=== PATIENT | male | born 1970 | race Caucasian/White ===

== ENCOUNTER 2025-08-04 06:05 | Inpatient (IN) ==
--- NOTE | 2025-08-04 06:22 | Emergency Department Note ---
Impression & Plan Abdominal pain, Rhinovirus infection, Small bowel obstruction ED Provider Note NAME: VALENTE SALOMON AGE: 54 SEX: M : 1970 ARRIVES VIA: Walk-In INFORMANT: Patient ED PROVIDER(S): Peter Grimes MD CHIEF COMPLAINT: Abdominal pain, nausea. PLAN: Disposition: Admit MEDICAL DECISION MAKING: The patient is a pleasant 54-year-old gentleman with a past medical history of IBS, history of GERD, history of Angela fundoplication remotely, hyperlipidemia, hypertension, atrial flutter on Eliquis who presents to the emergency department via walk-in for evaluation of abdominal pain, bloating with nausea over the past 2 days where reports moving his bowels this morning and yesterday but only a small soft amount. He reported a normal bowel movement without straining 2 days ago. He reports having sore throat with some mild congestion that began yesterday as well. Patient also describes history of lysis of adhesions remotely in the early as well as subsequent lysis of adhesions when he had his gallbladder removed in 2007. Patient denies having recent colonoscopy. On evaluation the patient is no acute distress, afebrile with heart in the 90s and vital signs otherwise stable. Appears clinically dry. Abdomen is distended with generalized discomfort without discrete tenderness. There is no guarding or rebound. EKG demonstrates atrial flutter with variable AV block without overt acute ischemia. WBC, H/H and platelets with normal limits. Chemistry without metabolic acidosis. LFTs mildly elevated but similar to prior and nonspecific. Lipase is normal. UA without evidence of infection. Respiratory BioFire was positive for enterovirus/rhinovirus. CT of the abdomen pelvis was completed and demonstrates moderately dilated multiple fluid-filled bowel loops involving the distal ileal loops measure up to 46 mm with a maximum diameter down to the level of the distal ileum. No definite obstructing masses are seen. Per my review there is some air and stool within the colon though decompressed. Given patient reports having small soft stools earlier today unclear if findings reflect partial obstruction versus enteritis. Upon evaluation patient was feeling improved following IV fluid hydration, IV APAP, IV famotidine, IV Zofran and IV morphine. Patient still with abdominal distention and some discomfort. CT findings were reviewed with the patient and agrees with plan for admission for further management. Case was discussed with Dr. Irving, general surgery on-call. Appreciate consultation and recommendations. Agrees with admission to medicine service for observation. Agrees with NG tube if patient were to become more symptomatic again and can defer if not having significant pain or nausea and vomiting. Case was discussed with Dr. Gaines, [facility] hospitalist, who will evaluate the patient for admission. Triage Nursing notes reviewed and agree them. Prior/external medical records reviewed Vital Signs: reviewed Differential diagnosis: Gastroenteritis, food borne illness, infections, appendicitis, diverticulitis, inflammatory bowel disease, obstruction, GI bleed, biliary pathology, volvulus, as well as other pathologies. ER treatment provided: See below. Diagnostics interpreted by me: ECG: Atrial flutter, variable AV block, 94 bpm, no overt ST elevation or depression, QTc 502, QRS 88. Cardiac Monitoring: An order for continuous cardiac monitoring was placed and demonstrated Atrial flutter, variable AV block, 94 bpm, Laboratory studies: See below Imaging studies: See below Consultation(s): Dr. Irving, general surgery Dr. Gaines, [facility] hospitalist, HPI: Per MDM. ROS: See above HPI for pertinent positives & negatives. A total of 10 systems reviewed and were otherwise negative. VITALS:See Below PHYSICAL EXAMINATION: GENERAL: Awake, alert, in no distress HENT: Normocephalic, atraumatic. Oropharynx with dry mucous membranes and otherwise unremarkable. EYES: Normal conjunctiva. Sclera non-icteric. NECK: Supple. No nuchal rigidity. FROM. No JVD. RESPIRATORY: Clear to auscultation. CARDIAC: Regular rate, normal rhythm. Extremities warm and well perfused. Pulses equal. ABDOMEN: Distended with generalized discomfort without discrete tenderness. There is no guarding or rebound. MUSCULOSKELETAL: Chest examination reveals no tenderness. The back is symmetrical on inspection without obvious abnormality. There is no CVA tenderness to palpation. No joint edema. LOWER EXTREMITIES: Calves are equal size bilaterally and non-tender. No edema. No discoloration. NEURO: Normal sensorium. No sensory or motor deficits noted. SKIN: No rash or jaundice noted. Peter Grimes MD Past Med/Surg History Problem List (Updated 08/04/25 @ 22:35 by Peter Grimes MD) Rhinovirus infection (Acute) Abdominal pain (Acute) Small bowel obstruction (Acute) COVID-19 (Acute) 2022 IBS (irritable bowel syndrome) Gastritis (Acute) Diarrhea (Acute) High triglycerides (Chronic) Medical History High triglycerides Hx of gastritis History of COVID-19 fall 2022 Atrial fibrillation 2019 IBS (irritable bowel syndrome) Surgical History History of cardioversion Status post Angela fundoplication History of cardiac radiofrequency ablation Jul 2023, January 2024 History of cholecystectomy History of appendectomy History of hernia repair History of esophagogastroduodenoscopy History of colonoscopy Family History Grandfather Prostate cancer Breast cancer Skin cancer Hypertension Silicosis Father Hypertension Social History Smoking Status: Former smoker Tobacco Type: Cigars Cigarettes Per Day: does not inhale and very rare use > advised by PAT nursing; Second Hand Exposure: No; Do You Dip or Chew Tobacco: Yes (advised npo by PAT nursing); Hx Alcohol Use: Yes Alcohol type: beer Hx Substance Use: No Preferred Language: Yakut Communication Ability: Effective Prison Guard Supervisor Required: No Beliefs That Will Affect Care: None Current Living Situation: Spouse Feels Safe at Home: Yes Assistive Devices: None Allergies Allergies Allergy/AdvReac Type Severity Reaction Status Date / Time sacubitril [From Entresto] AdvReac Headache Verified 05/08/25 07:09 valsartan [From Entresto] AdvReac Headache Verified 05/08/25 07:09 Home Meds Home Medications Medication Instructions Recorded Confirmed aspirin 81 mg tablet,delayed 81 mg PO QPM 12/22/19 08/04/25 release (Dat Low Dose Aspirin) atorvastatin 20 mg tablet (Lipitor) 20 mg PO QPM 12/22/19 08/04/25 metoprolol succinate 100 mg 75 mg PO HS 07/06/21 08/04/25 tablet,extended release 24 hr (Toprol XL) acetaminophen 500 mg tablet 500 mg PO Q6H PRN Fever 12/12/21 08/04/25 (Tylenol Extra Strength) milk thistle 175 mg tablet 175 mg PO QPM 12/12/21 08/04/25 multivitamin 1 tab PO QAM 12/12/21 08/04/25 apixaban 5 mg tablet (Eliquis) 5 mg PO BID 06/04/24 08/04/25 losartan 50 mg tablet 50 mg PO QAM 11/26/24 08/04/25 dronedarone 400 mg tablet (Multaq) 400 mg PO BID 05/01/25 08/04/25 Previous Rx's Medication Instructions Recorded ondansetron 4 mg disintegrating 4 mg PO Q8 PRN nausea and vomiting 10/20/24 tablet #9 tabs Results & Data (ED) Vital Signs Vital Signs - 24 hr 08/04/25 06:06 08/04/25 06:06 08/04/25 06:21 Temperature 36.3 C L Temperature Source Oral Pulse Rate 96 H Pulse Rate from SpO2 Sensor Respiratory Rate 18 Respiratory Effort / Characteristics Non-Labored Respiratory Depth Normal Blood Pressure 131/98 Blood Pressure Mean 109 Pulse Oximetry 98 Oxygen Delivery Method Room Air Room Air Sepsis Recent Fever Within 48 Hours No Sepsis New/Unexplained Change in Mental Status No Sepsis Action Taken by Nursing No Action Required 08/04/25 06:35 08/04/25 06:36 08/04/25 06:42 Temperature Temperature Source Pulse Rate 99 H 93 H 91 H Pulse Rate from SpO2 Sensor 95 H 89 Respiratory Rate 13 19 Respiratory Effort / Characteristics Respiratory Depth Blood Pressure Blood Pressure Mean Pulse Oximetry 96 95 Oxygen Delivery Method Sepsis Recent Fever Within 48 Hours Sepsis New/Unexplained Change in Mental Status Sepsis Action Taken by Nursing 08/04/25 07:06 08/04/25 07:30 08/04/25 08:00 Temperature Temperature Source Pulse Rate 88 113 H 109 H Pulse Rate from SpO2 Sensor 91 H 107 H 113 H Respiratory Rate 19 20 19 Respiratory Effort / Characteristics Respiratory Depth Blood Pressure Blood Pressure Mean Pulse Oximetry 95 97 96 Oxygen Delivery Method Room Air Room Air Room Air Sepsis Recent Fever Within 48 Hours Sepsis New/Unexplained Change in Mental Status Sepsis Action Taken by Nursing 08/04/25 08:36 08/04/25 09:00 08/04/25 09:48 Temperature Temperature Source Pulse Rate 89 103 H 100 H Pulse Rate from SpO2 Sensor 106 H 99 H 108 H Respiratory Rate 18 Respiratory Effort / Characteristics Respiratory Depth Blood Pressure Blood Pressure Mean Pulse Oximetry 96 96 96 Oxygen Delivery Method Room Air Room Air Room Air Sepsis Recent Fever Within 48 Hours Sepsis New/Unexplained Change in Mental Status Sepsis Action Taken by Nursing 08/04/25 10:06 08/04/25 10:29 Temperature Temperature Source Pulse Rate 89 91 H Pulse Rate from SpO2 Sensor 91 H Respiratory Rate 18 Respiratory Effort / Characteristics Respiratory Depth Blood Pressure 157/110 H Blood Pressure Mean 125 Pulse Oximetry 96 Oxygen Delivery Method Room Air Sepsis Recent Fever Within 48 Hours Sepsis New/Unexplained Change in Mental Status Sepsis Action Taken by Nursing Laboratory Data Attestation: I reviewed the patient's lab results. 08/04/25 06:16 08/04/25 06:16 Lab Results 08/04/25 08/04/25 08/04/25 Range/Units 06:16 06:20 06:33 WBC 9.13 (4.8-10.8) K/ul RBC 4.98 (4.70-6.10) M/uL Hgb 15.7 (14.0-18.0) g/dl Hct 45.9 (42.0-52.0) % MCV 92.2 (80.0-100.0) fL MCH 31.5 (25.0-34.0) pg MCHC 34.2 (32.0-36.0) g/dL RDW Std Deviation 42.9 (36.4-46.3) fL RDW Coeff of Irina 12.7 (11.5-14.5) % Plt Count 226 (130-400) K/uL MPV 9.8 (9.4-12.4) fL Immature Gran % (Auto) 0.3 % Neut % (Auto) 73.5 % Lymph % (Auto) 16.1 % Wetzel % (Auto) 9.2 % Eos % (Auto) 0.5 % Baso % (Auto) 0.4 % Neut # (Auto) 6.70 H (1.40-6.50) K/uL Lymph # (Auto) 1.47 (1.20-3.40) K/uL Wetzel # (Auto) 0.84 H (0.11-0.59) K/uL Eos # (Auto) 0.05 (0.00-0.50) K/uL Baso # (Auto) 0.04 (0.00-0.20) K/uL Immature Gran # (Auto) 0.03 (0.01-0.20) K/uL Sodium 140 (136-145) mmol/L Potassium 4.2 (3.5-5.1) mmol/L Chloride 104 (98-107) mmol/L Carbon Dioxide 25 (21-32) mmol/L Anion Gap 11 (3-11) BUN 20 (6-23) mg/dl Creatinine 1.01 (0.6-1.4) mg/dl Est Cr Clr Drug Dosing 102.1 ml/min eGFR 87.83 BUN/Creatinine Ratio 19.8 (10-20) Glucose 141 H (70-99(Fasting)) mg/dl Calcium 10.2 (8.6-10.3) mg/dl Total Bilirubin 0.7 (0.2-1.0) mg/dl Direct Bilirubin 0.1 (0-0.2) mg/dl AST 61 H (13-39) U/L ALT 88 H (7-52) U/L Alkaline Phosphatase 112 H (34-104) U/L Total Protein 7.9 (6.0-8.3) gm/dl Albumin 4.8 (3.4-5.0) gm/dl Globulin 3.1 (2.5-4.0) gm/dl Albumin/Globulin Ratio 1.5 (0.9-2) Lipase 41 (11-82) U/L Urine Color Yellow Urine Appearance Clear (Clear) Urine pH 5.5 (4.5-7.5) Ur Specific Nat[place] >= 1.030 (1.000-1.030) Urine Protein Negative (Negative) Urine Glucose (UA) Negative (Negative) Urine Ketones Negative (Negative) Urine Blood Negative (Negative) Urine Nitrite Negative (Negative) Urine Bilirubin Negative (Negative) Urine Urobilinogen Negative (Negative) Ur Leukocyte Esterase Negative (Negative) Urine Comment Adenovirus (PCR) Not Detected (NotDetected) B. pertussis DNA (PCR) Not Detected (NotDetected) B.parapertussis DNA PCR Not Detected (NotDetected) C. pneumoniae DNA (PCR) Not Detected (NotDetected) Coronavirus OC43 (PCR) Not Detected (NotDetected) Coronavirus HKU1 (PCR) Not Detected (NotDetected) Coronavirus 229E (PCR) Not Detected (NotDetected) SARS-CoV-2 (PCR) Not Detected (NotDetected) Coronavirus NL63 (PCR) Not Detected (NotDetected) Human Metapneumovir PCR Not Detected (NotDetected) Influenza Type A (PCR) Not Detected (NotDetected) Influenza Type B (PCR) Not Detected (NotDetected) M. pneumoniae (PCR) Not Detected (NotDetected) Parainfluenza 1 (PCR) Not Detected (NotDetected) Parainfluenza 2 (PCR) Not Detected (NotDetected) Parainfluenza 3 (PCR) Not Detected (NotDetected) Parainfluenza 4 (PCR) Not Detected (NotDetected) RSV (PCR) Not Detected (NotDetected) Entero/Rhino (PCR) DETECTED A (NotDetected) Administered Medications Pantoprazole Sodium (Protonix) 40 mg in 10 mls @ 5 mls/min IV BID DAISY Stop: 09/03/25 10:59 Last Admin: 08/04/25 20:22 Dose: 5 mls/min Documented By: Admin: 08/04/25 11:20 Dose: 5 mls/min Documented By: APRIL Lactated Ringer's (Lr) 1,000 mls @ 125 mls/hr IV .Q8H DAISY Stop: 08/07/25 10:59 Last Admin: 08/04/25 19:33 Dose: 125 mls/hr Documented By: Infusion: 08/04/25 19:25 Dose: Infused Documented By: Admin: 08/04/25 11:25 Dose: 125 mls/hr Documented By: APRIL Metoprolol Tartrate (Metoprolol Tartrate 1 Mg/Ml Vial) 5 mg IV Q4 DAISY Stop: 09/03/25 11:59 Last Admin: 08/04/25 19:36 Dose: 5 mg Documented By: Admin: 08/04/25 16:50 Dose: 5 mg Documented By: Admin: 08/04/25 11:20 Dose: 5 mg Documented By: APRIL Morphine Sulfate (Morphine Sulfate 4 Mg/Ml 1 Ml Carp\Vial) 2 mg IV Q2R PRN PRN Reason: Pain Stop: 08/18/25 20:57 Last Admin: 08/04/25 21:07 Dose: 2 mg Documented By: CHELSI Ondansetron HCl (Ondansetron Inj 2 Mg/Ml 2 Ml Vial) 4 mg IV Q4H PRN PRN Reason: Nausea Stop: 09/03/25 10:44 Last Admin: 08/04/25 11:20 Dose: 4 mg Documented By: APRIL Discontinued Medications Sodium Chloride (Nss) 1,000 mls @ 999 mls/hr IV .Q1H1M ONE Stop: 08/04/25 07:16 Last Infusion: 08/04/25 10:06 Dose: Infused Documented By: Admin: 08/04/25 06:29 Dose: 999 mls/hr Documented By: RHINA Acetaminophen (Ofirmev) 1,000 mg in 100 mls @ 400 mls/hr IV NOW STA Stop: 08/04/25 06:35 Last Infusion: 08/04/25 06:44 Dose: Infused Documented By: Admin: 08/04/25 06:28 Dose: 400 mls/hr Documented By: RHINA Famotidine (Pepcid 20mg Iv Push) 20 mg in 5 mls @ 2.5 mls/min IV NOW STA Stop: 08/04/25 06:22 Last Admin: 08/04/25 06:28 Dose: 2.5 mls/min Documented By: RHINA Morphine Sulfate (Morphine Sulfate 4 Mg/Ml 1 Ml Carp\Vial) 4 mg IV NOW STA Stop: 08/04/25 06:44 Last Admin: 08/04/25 06:50 Dose: 4 mg Documented By: RHINA Morphine Sulfate (Morphine Sulfate 2 Mg/Ml Carp) 2 mg IV Q2R PRN PRN Reason: Pain Stop: 08/18/25 10:44 Last Admin: 08/04/25 15:43 Dose: 2 mg Documented By: Admin: 08/04/25 11:20 Dose: 2 mg Documented By: APRIL Ondansetron HCl (Ondansetron Inj 2 Mg/Ml 2 Ml Vial) 4 mg IV NOW STA Stop: 08/04/25 06:22 Last Admin: 08/04/25 06:28 Dose: 4 mg Documented By: RHINA Imaging Data Radiologist's Impression: Abdomen/Pelvis CT 08/04/25 06:43 EXAM: CT abd pelvis IV con only CLINICAL HISTORY: Abd pain, nausea. TECHNIQUE: Contrast-enhanced CT of the abdomen and pelvis was performed using the following protocol: axial images were obtained, with reconstructed coronal and sagittal images. Intravenous contrast was administered. One of the following dose reduction techniques was utilized for this exam: automated exposure control, adjustment of the mA and/or kV according to patient size, and use of iterative reconstruction. COMPARISON: 10/20/2024 FINDINGS: Bowel: There are moderately dilated, multiple fluid-filled bowel loops involving the distal ileal loops, measuring up to 46 mm at maximum diameter, extending down to the level of the distal ileum. No definite obstructing masses are seen. Mesenteric edema and a subtle amount of free fluid are present. Collapsed colonic segments are noted. No solid bowel masses are identified. The small bowel wall demonstrates normal enhancement. The SMA and SMV demonstrate normal enhancement. No pneumoperitoneum is seen. Abdomen: Liver: The liver is normal in size, shape, and density. No focal lesions, cysts, or masses are identified. The hepatic vasculature and biliary ducts are unremarkable. Gallbladder: Surgically removed. Pancreas: The head, body, and tail of the pancreas are visualized and appear normal in size and density. No pancreatic masses or calcifications are noted. The pancreatic duct is not dilated. Spleen: The spleen is normal in size, shape, and density. No splenic lesions or masses are identified. Appendix: The appendix is not identified. Kidneys and Adrenal Glands: Both kidneys are normal in size, shape, and position. Cortical thickness is within normal limits. Bilateral cortical simple cysts are present. No renal calculi or hydronephrosis are identified. The adrenal glands are unremarkable, with no evidence of masses or hyperplasia. Pelvis: Urinary Bladder: The urinary bladder is normal in contour and wall thickness. No intraluminal lesions are identified. Prostate: The prostate is normal in size and contour. No focal lesions or masses are identified. Seminal Vesicles: The seminal vesicles are normal in size and appearance. No abnormalities are noted. Rectum and Sigmoid Colon: The wall thickness of the rectum and sigmoid colon is normal, with no evidence of mass. Peritoneal and Retroperitoneal Structures: No lymphadenopathy is noted. Bones and Soft Tissues: The pelvic bones and soft tissues are unremarkable. No fractures or abnormal masses are identified. IMPRESSION: 1. There are moderately dilated, multiple fluid-filled bowel loops involving the distal ileal loops, measuring up to 46 mm at maximum diameter, extending down to the level of the distal ileum. No definite obstructing masses are seen. New finding. 2. Associated regional mesenteric congestion and a subtle amount of free fluid are present. New finding. 3. Clinical correlation, follow-up, and further work-up are advised. Electronically signed by Elliot Wood 08-04-2025 08:52 AM Discharge Plan Visit Data Chief Complaint: Abdominal Pain Stated Complaint: ABD PAIN ED Provider: Peter Grimes Discharge Problem: Abdominal pain, Rhinovirus infection, Small bowel obstruction Patient Disposition: Admitted As Inpatient Condition: Fair Discharge Instructions Interventions: ED Discharge Assessment Last Done: 08/04/25 12:41 Discharge Problem: Abdominal pain Qualifiers: Abdominal location: generalized Qualified Code(s): R10.84 - Generalized abdominal pain
[2025-08-04] MEDS: FAMOTIDINE 20MG IV PUSH 20 MG/5 ML SYR IV STA (06:28)
[2025-08-04] MEDS: ACETAMINOPHEN 1,000 MG/100 ML VIAL IV STA (06:28)
[2025-08-04] MEDS: ONDANSETRON INJ 2 MG/ML 2 ML VIAL IV STA (06:28)
[2025-08-04] MEDS: SODIUM CHLORIDE 0.9% 1,000 ML IV ONE (06:29)
[2025-08-04 06:35] LABS: Hematocrit (blood only) 45.9 % (42.0-52.0); Hemoglobin 15.7 g/dl (14.0-18.0); Immature Granulocytes # (auto) 0.03 K/uL (0.01-0.20); Immature Granulocytes % (auto) 0.3 %; Mean Corpuscular Hemoglobin 31.5 pg (25.0-34.0); Mean Corpuscular Volume 92.2 fL (80.0-100.0); Platelet Count 226 K/uL (130-400); RDW Standard Deviation 42.9 fL (36.4-46.3); Red Blood Count 4.98 M/uL (4.70-6.10); White Blood Count 9.13 K/ul (4.8-10.8)
[2025-08-04 06:46] LABS: Appearance Urine Clear (Clear); Glucose Urine UA Negative (Negative)
[2025-08-04] MEDS: MoRPHine SULFATE 4 MG/ML 1 ML CARP\\VIAL IV STA (06:50)
[2025-08-04 06:54] LABS: Alanine Aminotransferase 88.0 U/L (7-52); Albumin Globulin Ratio 1.5 (0.9-2); Albumin Level 4.8 gm/dl (3.4-5.0); Alkaline Phosphatase 112.0 U/L (34-104); Anion Gap 11.0 (3-11); Bilirubin,Total 0.7 mg/dl (0.2-1.0); Blood Urea Nitrogen 20.0 mg/dl (6-23); Calcium 10.2 mg/dl (8.6-10.3); Carbon Dioxide 25.0 mmol/L (21-32); Chloride 104.0 mmol/L (98-107); Creatinine Clr Calc Pharmacy 102.1 ml/min; Globulin 3.1 gm/dl (2.5-4.0); Glucose 141.0 mg/dl (70-99(Fasting)); Lipase 41.0 U/L (11-82); Potassium 4.2 mmol/L (3.5-5.1); Sodium 140.0 mmol/L (136-145); Total Protein 7.9 gm/dl (6.0-8.3)
[2025-08-04 07:48] LABS: Chlamydia pneumoniae PCR Not Detected (NotDetected); Coronavirus 229E PCR Not Detected (NotDetected); Coronavirus CoV-2 (COVID19)PCR Not Detected (NotDetected); Coronavirus HKU1 PCR Not Detected (NotDetected); Coronavirus NL63 PCR Not Detected (NotDetected); Coronavirus OC43PCR Not Detected (NotDetected); Human Metapneumovirus PCR Not Detected (NotDetected); Parainfluenza Virus 1 PCR Not Detected (NotDetected); Parainfluenza Virus 2 PCR Not Detected (NotDetected); Parainfluenza Virus 3 PCR Not Detected (NotDetected); Parainfluenza Virus 4 PCR Not Detected (NotDetected); Respiratory Syncytial VirusPCR Not Detected (NotDetected); Rhinovirus/Enterovirus PCR DETECTED (NotDetected)
--- NOTE | 2025-08-04 08:52 | CT Scan Report ---
EXAM: CT abd pelvis IV con only CLINICAL HISTORY: Abd pain, nausea. TECHNIQUE: Contrast-enhanced CT of the abdomen and pelvis was performed using the following protocol: axial images were obtained, with reconstructed coronal and sagittal images. Intravenous contrast was administered. One of the following dose reduction techniques was utilized for this exam: automated exposure control, adjustment of the mA and/or kV according to patient size, and use of iterative reconstruction. COMPARISON: 10/20/2024 FINDINGS: Bowel: There are moderately dilated, multiple fluid-filled bowel loops involving the distal ileal loops, measuring up to 46 mm at maximum diameter, extending down to the level of the distal ileum. No definite obstructing masses are seen. Mesenteric edema and a subtle amount of free fluid are present. Collapsed colonic segments are noted. No solid bowel masses are identified. The small bowel wall demonstrates normal enhancement. The SMA and SMV demonstrate normal enhancement. No pneumoperitoneum is seen. Abdomen: Liver: The liver is normal in size, shape, and density. No focal lesions, cysts, or masses are identified. The hepatic vasculature and biliary ducts are unremarkable. Gallbladder: Surgically removed. Pancreas: The head, body, and tail of the pancreas are visualized and appear normal in size and density. No pancreatic masses or calcifications are noted. The pancreatic duct is not dilated. Spleen: The spleen is normal in size, shape, and density. No splenic lesions or masses are identified. Appendix: The appendix is not identified. Kidneys and Adrenal Glands: Both kidneys are normal in size, shape, and position. Cortical thickness is within normal limits. Bilateral cortical simple cysts are present. No renal calculi or hydronephrosis are identified. The adrenal glands are unremarkable, with no evidence of masses or hyperplasia. Pelvis: Urinary Bladder: The urinary bladder is normal in contour and wall thickness. No intraluminal lesions are identified. Prostate: The prostate is normal in size and contour. No focal lesions or masses are identified. Seminal Vesicles: The seminal vesicles are normal in size and appearance. No abnormalities are noted. Rectum and Sigmoid Colon: The wall thickness of the rectum and sigmoid colon is normal, with no evidence of mass. Peritoneal and Retroperitoneal Structures: No lymphadenopathy is noted. Bones and Soft Tissues: The pelvic bones and soft tissues are unremarkable. No fractures or abnormal masses are identified. IMPRESSION: 1. There are moderately dilated, multiple fluid-filled bowel loops involving the distal ileal loops, measuring up to 46 mm at maximum diameter, extending down to the level of the distal ileum. No definite obstructing masses are seen. New finding. 2. Associated regional mesenteric congestion and a subtle amount of free fluid are present. New finding. 3. Clinical correlation, follow-up, and further work-up are advised. Electronically signed by Elliot Wood 08-04-2025 08:52 AM
--- NOTE | 2025-08-04 11:07 | History & Physical Report ---
Date of Service August 04, 2025 Assessment & Plan (1) Small bowel obstruction: Plan: Assessment: 1. Abdominal pain with distention with dilated loops of ileum as discussed above with possible narrowing and possibly reflecting early small bowel obstruction/partial small bowel obstruction versus ileus. General surgery's been consulted. No emesis this time therefore no NG tube. Patient has an extensive abdominal history with a fundoplication in the past with ruptured appendix with lysis of adhesions in the past. He had a small bowel obstruction in the past requiring NG tube decompression for approximately 10 days per the patient. Will keep the patient NPO. GI prophylaxis with IV Protonix. IV fluids. We personally discussed with general surgery. As needed antiemetics and analgesics have been ordered. Again, lactic acid level has been ordered and pending at the time of this dictation. 2. Acute rhinovirus. Supportive care only. Patient is relatively asymptomatic with exception with scratchy throat and some nasal congestion. Isolate accordin gly. 3. Atrial fibrillation/atrial flutter. He has had cardioversion x 2 in the past. He is on chronic Eliquis therapy. His last dose was yesterday in the evening. Discussed with general surgery about anticoagulation at this time we will hold his Eliquis given the possible need for surgery. If there is a need to hold Eliquis for an extended period of time would recommend beginning to bridge the patient either with heparin or and/or Lovenox. Again the patient appears to be in sinus rhythm on auscultation at this time and on the monitor. SCDs for DVT prophylaxis at this point. 4. Transaminitis probably secondary to #5. Appears chronic and stable. 5. Daily alcohol consumption drinking approximately 40 beers per week. His last drink was yesterday afternoon around 2:00 he had a beer. He has never gone through alcohol withdrawal in the past. We have ordered a protocol with thiamine and folic acid replacement. If his withdrawal scale escalate significantly as needed benzodiazepines will be added as needed. 6. Hypertension. We have ordered IV Lopressor to be scheduled. Will monitor carefully add additional IV antihypertensives as needed. 7. Dyslipidemia. Statin on hold at this point given n.p.o. status. Plan: As discussed above. Please refer to orders for further planning. History of Present Illness Chief Complaint: Sinus congestion, abdominal discomfort, distention and nausea. Primary Care Provider: NO PCP This is a pleasant 54-year-old male who has a history of small bowel obstruction in the past. He says in the past had a ruptured appendix with lysis of adhesions and and then he saw fundoplication. Over the last 24 to 48 hours he has had intermittent abdominal discomfort as well as sinus congestion. In the middle of the night his symptoms got worse and presented to the ER this morning for further evaluation and treatment. In the ER the patient had laboratory studies including a CBC and a CMP which showed some mild transaminitis which appears to be somewhat chronic with AST and ALT of 61 and 88 respectively with an alk phos of 112. Otherwise his labs are unremarkable including his urinalysis however they did do a respiratory viral panel which was positive for rhinovirus. We are going to check a lactic acid level for completeness. That is pending at the time of this report. CT of the abdomen pelvis shows moderately dilated multiple fluid-filled loops of small bowel of the distal ileum specifically stented to 46 mm down to the level of the distal ileum. There was some mesenteric congestion noted as well. Consultation with the ER provider took place with general surgery Dr. Irving. The patient is going to be admitted to our service. He will be kept NPO. IV fluids. Will isolate for his respiratory illness with supportive care for that. Put him on IV Protonix twice daily for GI prophylaxis. Allergies Allergy/AdvReac Type Severity Reaction Status Date / Time sacubitril [From Entresto] AdvReac Headache Verified 05/08/25 07:09 valsartan [From Entresto] AdvReac Headache Verified 05/08/25 07:09 Home Medications Medication Instructions Recorded Confirmed Type aspirin 81 mg tablet,delayed 81 mg PO QPM 12/22/19 08/04/25 History release (Dat Low Dose Aspirin) atorvastatin 20 mg tablet (Lipitor) 20 mg PO QPM 12/22/19 08/04/25 History metoprolol succinate 100 mg 75 mg PO HS 07/06/21 08/04/25 History tablet,extended release 24 hr (Toprol XL) acetaminophen 500 mg tablet 500 mg PO Q6H PRN Fever 12/12/21 08/04/25 History (Tylenol Extra Strength) milk thistle 175 mg tablet 175 mg PO QPM 12/12/21 08/04/25 History multivitamin 1 tab PO QAM 12/12/21 08/04/25 History apixaban 5 mg tablet (Eliquis) 5 mg PO BID 06/04/24 08/04/25 History ondansetron 4 mg disintegrating 4 mg PO Q8 PRN nausea and vomiting 10/20/24 08/04/25 Rx tablet #9 tabs losartan 50 mg tablet 50 mg PO QAM 11/26/24 08/04/25 History dronedarone 400 mg tablet (Multaq) 400 mg PO BID 05/01/25 08/04/25 History Past Med/Surg History Problem List (Updated 08/04/25 @ 11:09 by Teo Gaines, PhD, DO) Small bowel obstruction COVID-19 (Acute) 2022 IBS (irritable bowel syndrome) Gastritis (Acute) Diarrhea (Acute) High triglycerides (Chronic) Medical History Atrial fibrillation dx 2019 High triglycerides History of COVID-19 fall 2022 Hx of gastritis IBS (irritable bowel syndrome) Surgical History History of appendectomy History of cardiac radiofrequency ablation Jul 2023, January 2024 History of cardioversion History of cholecystectomy History of colonoscopy History of esophagogastroduodenoscopy History of hernia repair Status post Angela fundoplication Family History Grandfather Prostate cancer Breast cancer Skin cancer Hypertension Silicosis Father Hypertension Social History Smoking Status: Never smoker Tobacco Type: Smokeless Tobacco (Dip or Chew) Cigarettes Per Day: does not inhale and very rare use > advised by PAT nursing; Second Hand Exposure: No; Do You Dip or Chew Tobacco: Yes (advised npo by PAT nursing); Hx Alcohol Use: No Hx Substance Use: No Preferred Language: French Communication Ability: Effective 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 Physical Exam Physical Exam: In General: In general for the 54-year-old male is alert and oriented x 3 at the time my exam. He appears his stated age. He is in mild discomfort with his abdominal distention at this point but requesting further antiemetics and analgesics. Otherwise he interacts appropriately pleasantly. HEENT: Normocephalic atraumatic pupils are equal round and reactive to light bilaterally. No scleral icterus no conjunctival injection external auditory canals are patent septum is in the midline nose is without discharge oral mucosa is pink and dry without lesion. NECK: Supple no rigidity no lymphadenopathy no thyromegaly no carotid bruits no JVD no masses. HEART: Regular rate and rhythm-appears to be in sinus rhythm at this point. I do not appreciate any ectopy or rub. No murmur. LUNGS: Clear to auscultation bilaterally and anteriorly with no evidence of adventitious sounds/wheezes rales or rhonchi. ABDOMEN: Distended, mildly tender diffusely. No rebound. No peritoneal sign. I do not appreciate bowel sounds at this point. EXTREMITIES: Intact, no peripheral cyanosis, clubbing or edema. Strength is 5 out of 5 in extremities x4, no pathological reflexes. NEUROLOGICAL: Cranial nerves II through XII are grossly intact with no focal deficit elicited upon examination. No tremor. Results & Data Results & Data Vital Signs (Past 12 Hours) Vital Signs Temp Pulse Resp BP Pulse Ox O2 Del Method 08/04/25 10:29 91 H 08/04/25 10:06 89 18 157/110 H 96 Room Air 08/04/25 09:48 100 H 18 96 Room Air 08/04/25 09:00 103 H 96 Room Air 08/04/25 08:36 89 96 Room Air 08/04/25 08:00 109 H 19 96 Room Air 08/04/25 07:30 113 H 20 97 Room Air 08/04/25 07:06 88 19 95 Room Air 08/04/25 06:42 91 H 19 95 08/04/25 06:36 93 H 13 96 08/04/25 06:35 99 H 08/04/25 06:21 Room Air 08/04/25 06:06 36.3 C L 96 H 18 131/98 98 Room Air Code Status & VTE Plan Code Status Full code. I personally discussed with patient at the bedside PG Care Time/CCT Total # of Minutes Spent Total Time Spent with Patient: Total time spent is greater than 50% in coordination of care (as documented) at patient's floor/unit and/or counseling patient: Coding Level of Care Code 94416 INT INP/OBS CARE MIN Diagnoses Small bowel obstruction K56.609
[2025-08-04] MEDS: ONDANSETRON INJ 2 MG/ML 2 ML VIAL IV PRN (11:20)
[2025-08-04] MEDS: PANTOprazole 40 MG/10 ML SYR IV SCH (11:20)
[2025-08-04] MEDS: METOPROLOL TARTRATE 1 MG/ML VIAL IV SCH (11:20)
[2025-08-04] MEDS: MoRPHine SULFATE 2 MG/ML CARP IV PRN (11:20)
[2025-08-04] MEDS: LACTATED RINGER'S 1,000 ML IV SCH (11:25)
--- NOTE | 2025-08-04 11:52 | Surgery Consultation ---
Date of Consultation August 04, 2025 Assessment & Plan (1) Small bowel obstruction: The patient is a 54 - year-old male who presented to the emergency department with complaints of abdominal pain for the last 24 hours. He has a surgical history of appendectomy, cholecystectomy, hernia repair and Angela fundop lication. He states that 2 weeks after his appendectomy he did require surgical intervention for a SBO and underwent lysis of adhesions at that time. Workup in the emergency room revealed positive for rhinovirus and CT imaging with concerns of moderately dilated multiple fluid-filled bowel loops with no definitive obstruction or masses. The patient was seen and evaluated this afternoon in the emergency department for possible SBO. He is resting comfortably in bed, vital signs stable, and is nontoxic-appearing. Patient currently not symptomatic denies any nausea or vomiting. Patient is currently not passing any gas. Patient admitted to the hospitalist service, from a surgical perspective recommend the following: - Patient has no signs of acute abdomen that would warrant emergent surgical intervention, will plan to treat conservatively - Keep n.p.o., IV fluid hydration, antiemetics and pain control as needed. - Patient currently without any nausea or vomiting, will hold off on NG tube placement. However if patient does become symptomatic would recommend placing NG tube for bowel decompression. - Pain control as needed - Patient does have a history of A-fib and does take Eliquis, recommend holding at this time. - Medical management per primary team, surgery will continue to follow (2) COVID-19: Supervising Physician Co-Signing Physician Notes Patient seen and examined, labs and imaging reviewed, agree with above. Patient with history of perforated appendicitis and early postoperative bowel obstru ction in early treated with lysis of adhesions. Had lysis of adhesions during a laparoscopic cholecystectomy few years ago. Presents with abdominal distention and pain. Had a recent viral illness and did test positive for entero-/RSV. Had a small bowel movement overnight. Still feels distended, some nausea, not vomiting. On exam he is afebrile with stable vitals. His abdomen is soft, distended, mild epigastric tenderness to palpation, no guarding or rebound. Labs unremarkable. CT personally viewed and interpreted and agree with the assessment of dilated loops of small bowel with tapering in the right lower quadrant. No obvious transition point indicate bowel obstruction. May be a early partial small bowel obstruction versus developing enteritis. No surgical intervention indicated at this time. Will hold off on NG tube unless he starts vomiting or fails to progress. Continue n.p.o., if has return of bowel function started to feel better may have some clear liquids. Surgery will follow, call with questions or concerns. History of Present Illness Reason for Consultation: SBO History of Present Illness The patient is a 54 - year-old male who presented to the emergency department with complaints of abdominal pain for the last 24 hours. He states he started with symptoms last evening around 8pm and throughout the night his symptoms persisted. He states he also has had some congestion with the onset of his symptoms. The patient does have a surgical history of appendectomy, cholecystectomy, hernia repair and Angela fundoplication. He states that 2 weeks after his appendectomy he did require surgical intervention for a SBO and underwent lysis of adhesions at that time. Due to his ongoing symptoms he came to the emergency room and upon workup his respiratory viral panel was positive for rhinovirus and CT imaging with concerns of moderately dilated multiple fluid-filled bowel loops with no definitive obstruction or masses. Given patient's symptoms, he was admitted to the medical service and general surgery was consulted for further evaluation. Patient was seen and evaluated this afternoon at bedside with attending surgeon, Dr. Irving. Patient currently not nauseous and has had no episodes of emesis. Patient states that he is currently not passing any gas. On exam has no signs of acute abdomen that would warrant emergent surgical intervention. Allergies Allergy/AdvReac Type Severity Reaction Status Date / Time sacubitril [From Entresto] AdvReac Headache Verified 05/08/25 07:09 valsartan [From Entresto] AdvReac Headache Verified 05/08/25 07:09 Home Medications Medication Instructions Recorded Confirmed Type aspirin 81 mg tablet,delayed 81 mg PO QPM 12/22/19 08/04/25 History release (Dat Low Dose Aspirin) atorvastatin 20 mg tablet (Lipitor) 20 mg PO QPM 12/22/19 08/04/25 History metoprolol succinate 100 mg 75 mg PO HS 07/06/21 08/04/25 History tablet,extended release 24 hr (Toprol XL) acetaminophen 500 mg tablet 500 mg PO Q6H PRN Fever 12/12/21 08/04/25 History (Tylenol Extra Strength) milk thistle 175 mg tablet 175 mg PO QPM 12/12/21 08/04/25 History multivitamin 1 tab PO QAM 12/12/21 08/04/25 History apixaban 5 mg tablet (Eliquis) 5 mg PO BID 06/04/24 08/04/25 History ondansetron 4 mg disintegrating 4 mg PO Q8 PRN nausea and vomiting 10/20/24 08/04/25 Rx tablet #9 tabs losartan 50 mg tablet 50 mg PO QAM 11/26/24 08/04/25 History dronedarone 400 mg tablet (Multaq) 400 mg PO BID 05/01/25 08/04/25 History Patient History Medical History Atrial fibrillation dx 2019 High triglycerides History of COVID-19 fall 2022 Hx of gastritis IBS (irritable bowel syndrome) Surgical History History of appendectomy History of cardiac radiofrequency ablation Jul 2023, January 2024 History of cardioversion History of cholecystectomy History of colonoscopy History of esophagogastroduodenoscopy History of hernia repair Status post Angela fundoplication Family History Grandfather Prostate cancer Breast cancer Skin cancer Hypertension Silicosis Father Hypertension Social History Smoking Status: Never smoker Tobacco Type: Smokeless Tobacco (Dip or Chew) Cigarettes Per Day: does not inhale and very rare use > advised by PAT nursing; Second Hand Exposure: No; Do You Dip or Chew Tobacco: Yes (advised npo by PAT nursing); Hx Alcohol Use: No Hx Substance Use: No Preferred Language: Occitan Communication Ability: Effective Software Support Specialist Required: No Beliefs That Will Affect Care: None Current Living Situation: Spouse Feels Safe at Home: Yes Assistive Devices: None Review of Systems Constitutional: no fever, no chills and no weakness Respiratory: +congestion Cardiovascular: no chest pain, no palpitations and no syncope Gastrointestinal: as per Subjective / HPI, + abdominal pain and + nausea Genitourinary: no difficulty urinating or no hematuria Physical Exam Constitutional: WD/WN, vitals as above Respiratory: normal respiratory effort, lungs clear to auscultation Cardiovascular: Rate/Rhythm: regular rate Gastrointestinal (Abdomen): Abdomen soft, mild distention, +generalized TTP throughout without any rebound, guarding or peritonitis Skin: no rashes, warm and dry Results & Data Vital Signs (Past 12 Hours) Vital Signs Temp Pulse Resp BP Pulse Ox O2 Del Method 08/04/25 11:20 88 149/105 H 08/04/25 10:29 91 H 08/04/25 10:06 89 18 157/110 H 96 Room Air 08/04/25 09:48 100 H 18 96 Room Air 08/04/25 09:00 103 H 96 Room Air 08/04/25 08:36 89 96 Room Air 08/04/25 08:00 109 H 19 96 Room Air 08/04/25 07:30 113 H 20 97 Room Air 08/04/25 07:06 88 19 95 Room Air 08/04/25 06:42 91 H 19 95 08/04/25 06:36 93 H 13 96 08/04/25 06:35 99 H 08/04/25 06:21 Room Air 08/04/25 06:06 36.3 C L 96 H 18 131/98 98 Room Air Diagnostic Findings EXAM: CT abd pelvis IV con only CLINICAL HISTORY: Abd pain, nausea. TECHNIQUE: Contrast-enhanced CT of the abdomen and pelvis was performed using the following protocol: axial images were obtained, with reconstructed coronal and sagittal images. Intravenous contrast was administered. One of the following dose reduction techniques was utilized for this exam: automated exposure control, adjustment of the mA and/or kV according to patient size, and use of iterative reconstruction. COMPARISON: 10/20/2024 FINDINGS: Bowel: There are moderately dilated, multiple fluid-filled bowel loops involving the distal ileal loops, measuring up to 46 mm at maximum diameter, extending down to the level of the distal ileum. No definite obstructing masses are seen. Mesenteric edema and a subtle amount of free fluid are present. Collapsed colonic segments are noted. No solid bowel masses are identified. The small bowel wall demonstrates normal enhancement. The SMA and SMV demonstrate normal enhancement. No pneumoperitoneum is seen. Abdomen: Liver: The liver is normal in size, shape, and density. No focal lesions, cysts, or masses are identified. The hepatic vasculature and biliary ducts are unremarkable. Gallbladder: Surgically removed. Pancreas: The head, body, and tail of the pancreas are visualized and appear normal in size and density. No pancreatic masses or calcifications are noted. The pancreatic duct is not dilated. Spleen: The spleen is normal in size, shape, and density. No splenic lesions or masses are identified. Appendix: The appendix is not identified. Kidneys and Adrenal Glands: Both kidneys are normal in size, shape, and position. Cortical thickness is within normal limits. Bilateral cortical simple cysts are present. No renal calculi or hydronephrosis are identified. The adrenal glands are unremarkable, with no evidence of masses or hyperplasia. Pelvis: Urinary Bladder: The urinary bladder is normal in contour and wall thickness. No intraluminal lesions are identified. Prostate: The prostate is normal in size and contour. No focal lesions or masses are identified. Seminal Vesicles: The seminal vesicles are normal in size and appearance. No abnormalities are noted. Rectum and Sigmoid Colon: The wall thickness of the rectum and sigmoid colon is normal, with no evidence of mass. Peritoneal and Retroperitoneal Structures: No lymphadenopathy is noted. Bones and Soft Tissues: The pelvic bones and soft tissues are unremarkable. No fractures or abnormal masses are identified. IMPRESSION: 1. There are moderately dilated, multiple fluid-filled bowel loops involving the distal ileal loops, measuring up to 46 mm at maximum diameter, extending down to the level of the distal ileum. No definite obstructing masses are seen. New finding. 2. Associated regional mesenteric congestion and a subtle amount of free fluid are present. New finding. 3. Clinical correlation, follow-up, and further work-up are advised. PG Care Time/CCT Total # of Minutes Spent Total Time Spent with Patient: Total time spent is greater than 50% in coordination of care (as documented) at patient's floor/unit and/or counseling patient: [place] [address] Office/OBS Consult Lvl 1 Patient Type New Medical Decision Making Straight Forward Diagnoses Small bowel obstruction K56.609 COVID-19 U07.1
--- NOTE | 2025-08-04 11:58 | Electrocardiogram Report ---
Test Reason : Blood Pressure : */* mmHG Vent. Rate : 94 BPM Atrial Rate : 234 BPM P-R Int : * ms QRS Dur : 88 ms QT Int : 402 ms P-R-T Axes : * -3 43 degrees QTcB Int : 502 ms Atrial flutter with variable A-V block Prolonged QT Abnormal ECG When compared with ECG of 08-May-2025 08:17, Atrial flutter has replaced Sinus rhythm Confirmed by Luis Jean ([id number]) on 08/04/2025 11:58:12 AM Referred By: REFERRED SELF Confirmed By: Luis Jean
[2025-08-04] MEDS ORDERED: MoRPHine SULFATE 4 MG/ML 1 ML CARP\\VIAL IV PRN (20:56)
[2025-08-04] MEDS: MoRPHine SULFATE 4 MG/ML 1 ML CARP\\VIAL IV PRN (21:07)
[2025-08-05 02:37] LABS: Hematocrit (blood only) 44.1 % (42.0-52.0); Hemoglobin 15.3 g/dl (14.0-18.0); Immature Granulocytes # (auto) 0.03 K/uL (0.01-0.20); Immature Granulocytes % (auto) 0.3 %; Mean Corpuscular Hemoglobin 31.9 pg (25.0-34.0); Mean Corpuscular Volume 91.9 fL (80.0-100.0); Platelet Count 206 K/uL (130-400); RDW Standard Deviation 42.9 fL (36.4-46.3); Red Blood Count 4.80 M/uL (4.70-6.10); White Blood Count 10.23 K/ul (4.8-10.8)
[2025-08-05 02:54] LABS: Alanine Aminotransferase 61.0 U/L (7-52); Albumin Globulin Ratio 1.1 (0.9-2); Albumin Level 4.0 gm/dl (3.4-5.0); Alkaline Phosphatase 125.0 U/L (34-104); Anion Gap 13.0 (3-11); Bilirubin,Total 0.9 mg/dl (0.2-1.0); Blood Urea Nitrogen 16.0 mg/dl (6-23); Calcium 9.8 mg/dl (8.6-10.3); Carbon Dioxide 21.0 mmol/L (21-32); Chloride 103.0 mmol/L (98-107); Creatinine Clr Calc Pharmacy 104.6 ml/min; Globulin 3.5 gm/dl (2.5-4.0); Glucose 173.0 mg/dl (70-99(Fasting)); Potassium 4.1 mmol/L (3.5-5.1); Sodium 137.0 mmol/L (136-145); Total Protein 7.5 gm/dl (6.0-8.3)
--- NOTE | 2025-08-05 03:32 | XRay Report ---
EXAM: XR chest 1V portable CLINICAL HISTORY: NG placement TECHNIQUE: An X-ray image of the chest was obtained in the AP projection. 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 FINDINGS: The nasogastric tube is seen in situ, with the tip noted below the diaphragm, within the stomach lumen. The lungs are clear with no pulmonary infiltrate or pleural effusion. The cardiomediastinal silhouette is within normal limits. No acute osseous abnormality is identified. IMPRESSION: No acute cardiopulmonary disease. No other new interval abnormality since the prior study. The nasogastric tube is seen in situ, with the tip noted below the diaphragm, within the stomach lumen. Electronically signed by Ernie Hurley 08-05-2025 03:32 AM
--- NOTE | 2025-08-05 04:07 | Communication Note ---
Date of Service: August 05, 2025 This is a 54-year-old male who was previously seen by the surgical service due to concern for possible small bowel obstruction. Patient did not have signs of acute abdomen and was initially without any nausea or vomiting and it was not felt he required NG tube. Should be noted that the patient did have a CT scan that showed no definite transition point to indicate a small bowel obstruction. I was notified by the medical service at approximately 2:00 AM that patient was having increased abdominal discomfort and was no longer passing flatus and felt as though his abdomen was more distended. Medical service elected to place an NG tube and check repeat laboratories. Laboratories became available at approximately 3:30 PM which is when I evaluated the bedside. At this time the patient already had NG tube placed and he noted improvement of his abdominal discomfort and was without nausea or vomiting. Laboratories showed the patient had a CBC with a white blood cell count, hemoglobin, hematocrit, and platelet count were all normal. Chemistry profile showed sodium and potassium as well as BUN and creatinine were normal and not elevated. He did have a lactic acid level checked that was 3.4 which is greater than levels noted at time of admission (previously 2.1-2.3). The patient has also since had a chest x-ray performed that shows a nasogastric tube within the stomach. On physical exam the patient is noted to have a mildly distended abdomen. There is no rebound tenderness, guarding, or signs of peritonitis. Patient's blood pressure is noted to be 141/104 and his pulse is tachycardic with a rate of approximately 120 bpm. Patient is currently n.p.o. and we will keep NG tube in place. He is receiving intravenous fluids at 125 cc/h which we will continue. A repeat lactic acid level scheduled for 4:00 AM which will help guide further medical decision making. Additional recommendations will be forthcoming based on his clinical course as unfolds Addendum: Repeat lactic acid level at 4:00 AM has decreased to 2.7. Will continue with current plan including NG tube to low intermittent suction, n.p.o. status, hydration with intravenous fluids.
[2025-08-05 04:35] LABS: Hematocrit (blood only) 42.2 % (42.0-52.0); Hemoglobin 14.5 g/dl (14.0-18.0); Immature Granulocytes # (auto) 0.03 K/uL (0.01-0.20); Immature Granulocytes % (auto) 0.3 %; Mean Corpuscular Hemoglobin 31.5 pg (25.0-34.0); Mean Corpuscular Volume 91.5 fL (80.0-100.0); Platelet Count 191 K/uL (130-400); RDW Standard Deviation 42.1 fL (36.4-46.3); Red Blood Count 4.61 M/uL (4.70-6.10); White Blood Count 9.98 K/ul (4.8-10.8)
--- NOTE | 2025-08-05 04:36 | Communication Note ---
Date of Service: August 05, 2025 At 0126 I was alerted by nursing that the patient was experiencing increased abdominal distention and pain and was no longer passing flatus. At this time NG tube was placed, confirmed by x ray and placed to low intermittent wall suction. CBC, CMP, and Lactate were performed. Patient did report improvement in discomfort with placement of NG tube. Pt with +abdominal distension, tender to palpation without rebound or guarding, +BS CBC and CMP largely stable from prior. Lactate increased from 2.3 to 3.4 housecalls nurse surgical PA made aware Plan for re-check of lactate with am labs
[2025-08-05 04:50] LABS: Alanine Aminotransferase 55 U/L (7-52); Albumin Level 3.8 gm/dl (3.4-5.0); Alkaline Phosphatase 116 U/L (34-104); Anion Gap 10 (3-11); Bilirubin,Total 0.9 mg/dl (0.2-1.0); Blood Urea Nitrogen 15 mg/dl (6-23); Calcium 9.2 mg/dl (8.6-10.3); Carbon Dioxide 23 mmol/L (21-32); Chloride 104 mmol/L (98-107); Cholesterol 112 mg/dl (0-200); Creatinine Clr Calc Pharmacy 116.4 ml/min; Glucose 144 mg/dl (70-99(Fasting)); HDL Cholesterol 30 mg/dl; Magnesium 2.0 mg/dl (1.7-2.4); Potassium 4.2 mmol/L (3.5-5.1); Sodium 137 mmol/L (136-145); Total Protein 6.8 gm/dl (6.0-8.3); Triglycerides 573 mg/dl (0-150)
[2025-08-05 04:53] LABS: Albumin Globulin Ratio 1.3 (0.9-2); Globulin 3.0 gm/dl (2.5-4.0)
[2025-08-05 05:04] LABS: INR 1.1 (0.9-1.1); Prothrombin Time 11.3 Seconds (9.0-12.0); Thyroid Stimulating Hormone 2.859 uIu/ml (0.300-4.500)
[2025-08-05] MEDS ORDERED: MoRPHine SULFATE 4 MG/ML 1 ML CARP\\VIAL IV PRN (08:38)
[2025-08-05] MEDS: FOLIC ACID 1 MG in SYRINGE 9.8 ML IV SCH (08:47)
[2025-08-05] MEDS: THIAMINE HCL 200 MG in SODIUM CHLORIDE 0.9% 50 ML IV SCH (08:58)
--- NOTE | 2025-08-05 09:27 | Surgery Progress Note ---
Date of Service August 05, 2025 Assessment & Plan (1) Small bowel obstruction: Plan: The patient is a 54 - year-old male with a history of appendectomy, cholecystectomy, hernia repair and Angela fundoplication. Patient admitted with rhinovirus and CT imaging with concerns of SBO. - Patient overnight did have worsening abdominal pain and distention and an NG tube was placed at that time. NGT with 400cc output in canister this morning. On exam, he has no signs of acute abdomen that would warrant emergent surgical intervention, will plan to continue treat conservatively - Keep NGT in place for today, n.p.o., IV fluid hydration, antiemetics and pain control as needed. - Patient does have a history of A-fib and HR has been between 110-120s, will defer to medicine for rate control. - Medical management per primary team, surgery will continue to follow (2) COVID-19: Admission and Anticipated Discharge Date Admission Date: August 04, 2025 Supervising Physician Co-Signing Physician Notes Patient seen and examined, labs and imaging reviewed, overnight events reviewed. Agree with above. Admitted with small bowel obstruction versus enteritis. He had worsening distention and vomiting last night and an NG tube was placed. This offered him relief. He started passing flatus this morning and has had 3 bowel movements today. His first bowel movement was formed, now they were loose. He feels much better. He has been noted to be in A-fib with RVR. Afebrile, normotensive, in A-fib. Abdomen soft, nontender, nondistended. Labs unremarkable. NG tube was placed overnight, prefer to keep this in for 24 hours. If he continues to have bowel movements and feels better then we can remove this tomorrow. I suspect this was gastroenteritis secondary to his recent viral illness. Subjective Patient seen and evaluated this morning. Patient earlier this morning around 2 AM was having increased abdominal discomfort and distention and repeat labs revealed elevated lactic acid at 3.4. Patient did have an NG tube placed and had recorded 300 cc gastric output out immediately. Patient states that since NG tube has been placed he is feeling significantly better, feels less distended, and is starting to pass gas again this morning. No BM yet. Physical Exam Constitutional: WD/WN, vitals as above Respiratory: normal respiratory effort, lungs clear to auscultation Cardiovascular: Rate/Rhythm: + tachycardic Gastrointestinal (Abdomen): Abdomen soft, slightly distended, mild tenderness palpation in upper epigastric region. No rebound, guarding or signs of peritonitis. NG tube in place with 400 cc gastric output in canister. Skin: no rashes, warm and dry Results & Data Vital Signs (Past 12 Hours) Vital Signs Temp Pulse Pulse Resp BP BP Pulse Ox 08/05/25 09:01 120 H 140/99 08/05/25 08:45 121 H 143/100 H 08/05/25 07:36 36.6 C 120 H 22 140/96 91 08/05/25 04:10 121 H 143/108 H 08/05/25 03:55 120 H 141/104 H 08/05/25 03:52 36.7 C 120 H 18 141/104 H 94 08/05/25 00:11 111 H 151/104 H 08/04/25 23:59 36.4 C L 111 H 18 151/104 H 96 08/04/25 23:20 114 H O2 Del Method 08/05/25 09:01 08/05/25 08:45 08/05/25 07:36 Room Air 08/05/25 04:10 08/05/25 03:55 08/05/25 03:52 Room Air 08/05/25 00:11 08/04/25 23:59 Room Air 08/04/25 23:20 PG Care Time/CCT Total # of Minutes Spent Total Time Spent with Patient: Total time spent is greater than 50% in coordination of care (as documented) at patient's floor/unit and/or counseling patient: C[place] [address] SUB INP/OBS CARE 10/26MIN Patient Type Established Medical Decision Making Straight Forward Diagnoses Small bowel obstruction K56.609 COVID-19 U07.1
[2025-08-05] MEDS: CHLORASEPTIC (PHENOL) 1.4% SOLN 180 ML BTL MT PRN (10:49)
--- NOTE | 2025-08-05 10:53 | Hospitalist Progress Note ---
Date of Service August 05, 2025 Assessment & Plan (1) Rhinovirus infection: (2) Abdominal pain: (3) Small bowel obstruction: (4) History of Angela fundoplication: (5) High triglycerides: (6) Atrial fibrillation: (7) History of cardioversion: Plan # Small bowel obstruction - Ct: distention with dilated loops of ileum as discussed above with possible narrowing and possibly reflecting early small bowel obstruction/partial small bowel obstruction versus ileus. - General surgery's been consulted. - H/o extensive abdominal history with a fundoplication in the past with ruptured appendix with lysis of adhesions. He had a small bowel obstruction in the past requiring NG tube decompression for approximately 10 days per the patient. -Will keep the patient NPO. GI prophylaxis with IV Protonix. IV fluids. As needed antiemetics and analgesics have been ordered. - lactate- 3.4->1.9. #. Acute rhinovirus. Supportive care only. Patient is relatively asymptomatic with exception with scratchy throat and some nasal congestion. # Atrial fibrillation/atrial flutter. -H/O cardioversion x 2 in the past. On chronic Eliquis therapy. His last dose was yesterday in the evening. Discussed with general surgery about anticoagulation at this time we will hold his Eliquis given the possible need for surgery. SCDs for DVT prophylaxis at this point. 4. Transaminitis probably secondary to #5. Appears chronic and stable. 5. Daily alcohol consumption drinking approximately 40 beers per week. His last drink was yesterday afternoon around 2:00 he had a beer. He has never gone through alcohol withdrawal in the past. We have ordered a protocol with thiamine and folic acid replacement. If his withdrawal scale escalate significantly as needed benzodiazepines will be added as needed. 6. Hypertension. We have ordered IV Lopressor to be scheduled. Will monitor carefully add additional IV antihypertensives as needed. 7. Dyslipidemia. Statin on hold at this point given n.p.o. status. Admission and Anticipated Discharge Date Admission Date: August 04, 2025 Supervising Physician Co-Signing Physician Notes I personally examined the patient and verified all ramsey points of history and exam, discussed case, and agree with decision making with Dr Lindquist feeling better. Belly far less distended and far less painful. Occasionally feels some palpitations but overall does not feel any cardiac symptoms. No alcohol withdrawal symptoms. Vitals noted, in general he is awake and alert pleasant no distress. HEENT normocephalic atraumatic mucous membranes moist. Cardio is tachycardic around 120 whenever I see him, breathing unlabored no accessory muscle use. NG tube in place, abdomen soft nondistended nontender. Small bowel obstructionalmost certainly adhesional. Continue conservative care. Appears to be improving. Atrial flutterchronic A-fib/flutterexacerbated due to pain from SBO, but now tachycardia likely due to the rhythm itself. Has not improved with IV Lopressoradd IV diltiazem. If that does not improve the rate or if he starts to decompensate at all (not at this time) cardioversion. Chronically anticoagulated. Right now DOAC on hold due to NPO. Alcohol abusefortunately no withdrawal at this time. Continue to follow. Continue thiamine and folate. Considered whether or not his tachycardia was related to alcohol withdrawal, but he has no diaphoresis/tremulousness or anxietyso I really suspect it is purely the rhythm. DVT prophylaxischronically anticoagulated. Right now his anticoagulation is on hold due to NPO. If he continues to not take p.o. through tomorrow, would add pharmacologic DVT prophylaxis. Subjective Patient lying on bed with NG tube placed overnight. Patient states that since NG tube has been placed he is feeling significantly better, feels less distended, and is starting to pass gas again this morning. No BM yet. No nausea, vomiting, fever. Review of Systems Review of Systems: As per HPI. Physical Exam Constitutional: WD/WN, vitals as above Respiratory: normal respiratory effort, lungs clear to auscultation Cardiovascular: Rate/Rhythm: + tachycardic Gastrointestinal (Abdomen): Abdomen soft, slightly distended, mild tenderness palpation in upper epigastric region. No rebound, guarding or signs of peritonitis. NG tube in place. Skin: no rashes, warm and dry Results & Data Results & Data Vital Signs (Past 12 Hours) Vital Signs Temp Pulse Pulse Resp BP BP Pulse Ox 08/05/25 09:16 08/05/25 09:01 120 H 140/99 08/05/25 08:45 121 H 143/100 H 08/05/25 07:36 36.6 C 120 H 22 140/96 91 08/05/25 04:10 121 H 143/108 H 08/05/25 03:55 120 H 141/104 H 08/05/25 03:52 36.7 C 120 H 18 141/104 H 94 08/05/25 00:11 111 H 151/104 H 08/04/25 23:59 36.4 C L 111 H 18 151/104 H 96 08/04/25 23:20 114 H O2 Del Method 08/05/25 09:16 Room Air 08/05/25 09:01 08/05/25 08:45 08/05/25 07:36 Room Air 08/05/25 04:10 08/05/25 03:55 08/05/25 03:52 Room Air 08/05/25 00:11 08/04/25 23:59 Room Air 08/04/25 23:20 (2) Abdominal pain Abdominal location: generalized Qualified Code(s): R10.84 - Generalized abdominal pain
[2025-08-05] MEDS ORDERED: STAT IV Infusion **Titration per Protocol STA (14:09)
[2025-08-05] MEDS ORDERED: ACETAMINOPHEN 325 MG TAB PO PRN (18:55)
--- NOTE | 2025-08-05 19:12 | Billing Data ---
Date of Service August 05, 2025 Coding Level of Care Code 71357 SUB INP/OBS CARE
--- NOTE | 2025-08-06 08:50 | Surgery Progress Note ---
Date of Service August 06, 2025 Assessment & Plan (1) Small bowel obstruction: Plan: Pt here w/ concern for SBO vs more enteritis picture NGT in place and he feels well s/p insertion. he has been passing gas/BMs and denies n/v. mild soreness in abdomen he attributes to soreness from vomiting He has much discomfort from NGT, will d/c it and start clears and see how he fairs Continue ambulation, pulm toilet, etc Will follow Admission and Anticipated Discharge Date Admission Date: August 04, 2025 Supervising Physician Co-Signing Physician Notes Patient seen examined, labs reviewed, agree with above. Admitted with partial small bowel obstruction versus more likely enteritis. Continues to have small loose bowel movements, abdominal pain mostly resolved. No nausea. Abdomen soft, nontender, nondistended. Will DC NG tube, start clear liquids, slowly advance diet as tolerated. Subjective Patient feels well. He continues to pass gas and BM's. No n/v. Some mild soreness in belly he related to retching. He wants NGT out Physical Exam Physical Exam: awake/alert, no distress Respiratory: normal respiratory effort Gastrointestinal (Abdomen): Percussion/Palpation: + abdomen tender (mild discomfort mid abdomen) and abdomen soft + ngt output 600cc noted Results & Data Vital Signs (Past 12 Hours) Vital Signs Temp Pulse Pulse Resp BP BP Pulse Ox 08/06/25 07:02 98.6 F 111 H 22 149/85 H 92 08/06/25 05:50 113 H 08/06/25 04:30 121 H 133/91 08/06/25 04:07 116 H 143/90 H 08/06/25 04:06 116 H 143/90 H 08/06/25 02:26 98.6 F 118 H 18 133/94 93 08/06/25 00:23 113 H 139/91 08/06/25 00:13 139/91 08/05/25 22:28 98.1 F 113 H 18 138/95 98 08/05/25 21:25 121 H 127/100 08/05/25 21:24 121 H 127/100 O2 Del Method 08/06/25 07:02 Room Air 08/06/25 05:50 08/06/25 04:30 08/06/25 04:07 08/06/25 04:06 08/06/25 02:26 Room Air 08/06/25 00:23 08/06/25 00:13 08/05/25 22:28 Room Air 08/05/25 21:25 08/05/25 21:24 PG Care Time/CCT Total # of Minutes Spent Total Time Spent with Patient: Total time spent is greater than 50% in coordination of care (as documented) at patient's floor/unit and/or counseling patient: Coding Level of Care Code 20366 SUB INP/OBS CARE 10/26MIN Diagnoses Small bowel obstruction K56.609
[2025-08-06 09:42] LABS: Hematocrit (blood only) 40.4 % (42.0-52.0); Hemoglobin 14.5 g/dl (14.0-18.0); Immature Granulocytes # (auto) 0.02 K/uL (0.01-0.20); Immature Granulocytes % (auto) 0.2 %; Mean Corpuscular Hemoglobin 33.0 pg (25.0-34.0); Mean Corpuscular Volume 91.8 fL (80.0-100.0); Platelet Count 182 K/uL (130-400); RDW Standard Deviation 42.5 fL (36.4-46.3); Red Blood Count 4.40 M/uL (4.70-6.10); White Blood Count 8.74 K/ul (4.8-10.8)
[2025-08-06 09:54] LABS: Alanine Aminotransferase 37.0 U/L (7-52); Albumin Globulin Ratio 1.2 (0.9-2); Albumin Level 3.7 gm/dl (3.4-5.0); Alkaline Phosphatase 113.0 U/L (34-104); Anion Gap 8.0 (3-11); Bilirubin,Total 1.1 mg/dl (0.2-1.0); Blood Urea Nitrogen 15.0 mg/dl (6-23); Calcium 9.2 mg/dl (8.6-10.3); Carbon Dioxide 25.0 mmol/L (21-32); Chloride 105.0 mmol/L (98-107); Creatinine Clr Calc Pharmacy 96.6 ml/min; Globulin 3.1 gm/dl (2.5-4.0); Potassium 3.8 mmol/L (3.5-5.1); Sodium 138.0 mmol/L (136-145); Total Protein 6.8 gm/dl (6.0-8.3)
[2025-08-06] MEDS: APIXABAN 5 MG TABLET PO SCH (11:34)
--- NOTE | 2025-08-06 12:32 | Hospitalist Progress Note ---
Date of Service August 06, 2025 Assessment & Plan (1) Rhinovirus infection: (2) Abdominal pain: (3) Small bowel obstruction: (4) History of Angela fundoplication: (5) High triglycerides: (6) Atrial fibrillation: (7) History of cardioversion: Plan # Small bowel obstruction - Ct: distention with dilated loops of ileum as discussed above with possible narrowing and possibly reflecting early small bowel obstruction/partial small bowel obstruction versus ileus. - General surgery's been consulted. - H/o extensive abdominal history with a fundoplication in the past with ruptured appendix with lysis of adhesions. He had a small bowel obstruction in the past requiring NG tube decompression for approximately 10 days per the patient. -Will keep the patient NPO. GI prophylaxis with IV Protonix. IV fluids. As needed antiemetics and analgesics have been ordered. - lactate- 3.4->1.9. - NG tube suction paused for 2 hrs to see the abd distension and took the NG tube out afternoon. Patient has no concerns till now. -On clear liquid diet now. # Acute rhinovirus. Supportive care only. Patient is relatively asymptomatic with exception with scratchy throat and some nasal congestion. # Atrial fibrillation/atrial flutter. -H/O cardioversion x 2 in the past. On chronic Eliquis therapy. His last dose was a day before the admission. Continue Eliquis. -Continue Metoprolol, Diltiazem for rate control and Amiodarone for rhythm control. -Consult cardiology for possible cardioversion. #Transaminitis: -probably secondary to alcohol use. Appears chronic and stable. #Alcohol use: Daily alcohol consumption drinking approximately 40 beers per week. His last drink was a day before the admission, he had a beer. He has never gone through alcohol withdrawal in the past. We have ordered a protocol with thiamine and folic acid replacement. If his withdrawal scale escalate significantly as needed benzodiazepines will be added as needed. # Hypertension: Continue Metoprolol # Dyslipidemia. Statin on hold at this point given n.p.o. status. Admission and Anticipated Discharge Date Admission Date: August 04, 2025 Supervising Physician Co-Signing Physician Notes I personally examined the patient and verified all ramsey points of history and exam, discussed case, and agree with decision making with Dr Lindquist Continues to feel pretty good overall. Belly pain improved. Tolerating clears well, off of suction for about an hour. Occasional palpitations/fluttering from tachycardia but no other symptoms. Vitals noted, in general he is awake and alert pleasant no distress. HEENT normocephalic atraumatic mucous membranes moist. Cardio is tachycardic around 120 whenever I see him, breathing unlabored no accessory muscle use. NG tube in place, abdomen soft nondistended nontender. Small bowel obstructionalmost certainly adhesional. Continue conservative care. improving. Tolerating clears. DC NG and slowly advance diet Atrial flutterchronic A-fib/flutterexacerbated due to pain from SBO, but now tachycardia likely due to the rhythm itself. Has not improved with IV Lopressor and IV diltiazem. given this, I suspect will need to use rhythm control given that it is atrial flutter and has been very stubborn for rate control; at the same time, patient does note that the NG tube is causing him significant d istresswe will see how he does once NG is out. If his heart rates do not improve, then we will ask cardiology to consider cardioversion Alcohol abusefortunately no withdrawal at this time. Continue to follow. Continue thiamine and folate. Considered whether or not his tachycardia was related to alcohol withdrawal, but he has no diaphoresis/tremulousness or anxietyso I really suspect it is purely the rhythm, not alcohol withdrawal driving the rhythm. DVT prophylaxischronically anticoagulated. resume anticoagulation given that he is taking p.o. Subjective Reports belly distension and pain has been better with no nausea. He is NPO with NG tube suctioning well. Reports heart palpitations more after he came in to hospital and woke up from the sleep because of both throat discomfort from NG tube and palpitations. Review of Systems Review of Systems: As per HPI. Physical Exam Constitutional: WD/WN, vitals as above Respiratory: normal respiratory effort, lungs clear to auscultation Cardiovascular: Rate/Rhythm: + tachycardic Skin: no rashes, warm and dry Results & Data Results & Data Vital Signs (Past 12 Hours) Vital Signs Temp Pulse Pulse Resp BP BP BP 08/06/25 12:29 36.9 C 111 H 22 148/80 H 08/06/25 11:50 120 H 08/06/25 11:35 118 H 08/06/25 11:06 36.9 C 120 H 22 130/88 08/06/25 09:44 36.8 C 121 H 22 134/91 08/06/25 09:29 121 H 08/06/25 08:11 120 H 08/06/25 07:02 37.0 C 111 H 22 149/85 H 08/06/25 05:50 113 H 08/06/25 04:30 121 H 133/91 08/06/25 04:07 116 H 143/90 H 08/06/25 04:06 116 H 143/90 H 08/06/25 02:26 37 C 118 H 18 133/94 Pulse Ox O2 Del Method 08/06/25 12:29 94 Room Air 08/06/25 11:50 08/06/25 11:35 08/06/25 11:06 94 Room Air 08/06/25 09:44 91 Room Air 08/06/25 09:29 08/06/25 08:11 08/06/25 07:02 92 Room Air 08/06/25 05:50 08/06/25 04:30 08/06/25 04:07 08/06/25 04:06 08/06/25 02:26 93 Room Air (2) Abdominal pain Abdominal location: generalized Qualified Code(s): R10.84 - Generalized abdominal pain
--- NOTE | 2025-08-06 13:16 | Billing Data ---
Date of Service August 06, 2025 Coding Level of Care Code 31704 SUB INP/OBS CARE
[2025-08-06] MEDS ORDERED: STAT IV Infusion **Titration per Protocol STA (17:00)
[2025-08-06] MEDS ORDERED: 0.2 MICRON FILTER SET 1 EACH IV STA (17:00)
[2025-08-06] MEDS: AMIODARONE / D5W 150 MG/100 ML BAG IV STA (17:22)
[2025-08-06] MEDS: AMIODARONE IV BOLUS & DRIP IV STA (17:22)
[2025-08-06] MEDS: AMIODARONE / D5W 360 MG/200 ML BAG IV ONE (17:36)
[2025-08-06 21:29] LABS: Cdiff Toxin B Gene (2yr or >) Negative Cdiff Gene (Neg)
[2025-08-06] MEDS: AMIODARONE / D5W 360 MG/200 ML BAG IV SCH (23:25)
[2025-08-07 07:49] LABS: Hematocrit (blood only) 39.8 % (42.0-52.0); Hemoglobin 13.8 g/dl (14.0-18.0); Immature Granulocytes # (auto) 0.04 K/uL (0.01-0.20); Immature Granulocytes % (auto) 1.0 %; Mean Corpuscular Hemoglobin 31.9 pg (25.0-34.0); Mean Corpuscular Volume 92.1 fL (80.0-100.0); Platelet Count 154 K/uL (130-400); RDW Standard Deviation 43.2 fL (36.4-46.3); Red Blood Count 4.32 M/uL (4.70-6.10); White Blood Count 3.86 K/ul (4.8-10.8)
[2025-08-07 08:07] LABS: Anion Gap 7.0 (3-11); Blood Urea Nitrogen 12.0 mg/dl (6-23); Calcium 9.2 mg/dl (8.6-10.3); Carbon Dioxide 27.0 mmol/L (21-32); Chloride 104.0 mmol/L (98-107); Creatinine Clr Calc Pharmacy 103.4 ml/min; Potassium 3.5 mmol/L (3.5-5.1); Sodium 138.0 mmol/L (136-145)
--- NOTE | 2025-08-07 08:15 | Surgery Progress Note ---
Date of Service August 07, 2025 Assessment & Plan (1) Small bowel obstruction: Plan: Pt here w/ concern for SBO vs gastroenteritis Doing well since NGT removal, remains with some mild abdominal soreness However he was tolerating clears without n/v and continued to have + bowel function When asked why he is NPO he states there is discussion about cardioversion today Once procedures complete or decided upon from our standpoint would resume slow diet advancement and see how he does from there Admission and Anticipated Discharge Date Admission Date: August 04, 2025 Supervising Physician Co-Signing Physician Notes Patient seen and examined, agree with above. Admitted with enteritis versus small bowel obstruction, appears to be more of a viral enteritis picture. Continues to have multiple loose bowel movements. Was tolerating liquid yesterday however n.p.o. for potential cardioversion today. He feels much better than upon arrival. On exam he is afebrile with stable vitals, his heart rate is 116, abdomen soft, nontender, nondistended. Okay to advance diet as tolerated from a general surgery standpoint. We will sign off, call with questions or concerns. Subjective Patient reports feeling similar to yesterday. Some abdominal soreness but ove rall okay. He is up ambulating and passing gas and BMs. Some burping. Said there are discussions about cardioversion today. Physical Exam Physical Exam: awake/alert, no distress Gastrointestinal (Abdomen): Inspection/Auscultation: + abdomen distended Percussion/Palpation: + abdomen tender (mild discomfort in mid abdomen ) and abdomen soft Results & Data Vital Signs (Past 12 Hours) Vital Signs Temp Pulse Pulse Resp BP Pulse Ox O2 Del Method 08/07/25 07:04 97.7 F 116 H 20 133/86 90 Room Air 08/07/25 05:12 113 H 08/07/25 04:56 115 H 146/98 H 08/07/25 02:42 98.2 F 115 H 18 131/83 92 Room Air 08/07/25 01:16 116 H 08/07/25 01:01 116 H 128/89 08/06/25 22:18 98.4 F 117 H 18 133/84 92 Room Air 08/06/25 22:02 118 H 08/06/25 21:07 118 H 08/06/25 20:52 98.5 F 121 H 19 148/85 H 92 Room Air PG Care Time/CCT Total # of Minutes Spent Total Time Spent with Patient: Total time spent is greater than 50% in coordination of care (as documented) at patient's floor/unit and/or counseling patient: Coding Level of Care Code 88360 SUB INP/OBS CARE 25MIN Diagnoses Small bowel obstruction K56.609
--- NOTE | 2025-08-07 11:25 | Cardiology Consultation ---
Date of Consultation August 07, 2025 Assessment & Plan (1) Paroxysmal atrial flutter: (2) History of Angela fundoplication: (3) High triglycerides: Plan I confirmed with GI if ok to do the ANABELLA. Will plan on ANABELLA CV in am cont Eliquis. meds reviewed with staff developer. History of Present Illness Reason for Consultation: Afib with RVR Attending Physician: Davon Meeks DO History of Present Illness Was asked to eval patient for possible cardioversion. He was admitted to the hospital on 08/04/25 with partial SBO. Unfortunately he was unable to take some of his meds due to the GI symptoms. ECG on presentation showed atrial flutter. He has been on Multaq and Eliquis for several years. I know him from prior cardioversion done several months ago. Because of the interruption in anticoagulation, we need to do ANABELLA to r/o DANISH thrombus first and then CV if no clot. Unfortunately, the schedule of lab aide and anesthesia would not allow for the procedure today. Will plan on doing chiquis thing in am. Will transition his meds back to po. DC IV amio and start Multaq as well as po metoprolol. Cont IV CCB for now. Allergies Allergy/AdvReac Type Severity Reaction Status Date / Time sacubitril [From Entresto] AdvReac Headache Verified 05/08/25 07:09 valsartan [From Entresto] AdvReac Headache Verified 05/08/25 07:09 Home Medications Medication Instructions Recorded Confirmed Type aspirin 81 mg tablet,delayed 81 mg PO QPM 12/22/19 08/04/25 History release (Dat Low Dose Aspirin) atorvastatin 20 mg tablet (Lipitor) 20 mg PO QPM 12/22/19 08/04/25 History metoprolol succinate 100 mg 75 mg PO HS 07/06/21 08/04/25 History tablet,extended release 24 hr (Toprol XL) acetaminophen 500 mg tablet 500 mg PO Q6H PRN Fever 12/12/21 08/04/25 History (Tylenol Extra Strength) milk thistle 175 mg tablet 175 mg PO QPM 12/12/21 08/04/25 History multivitamin 1 tab PO QAM 12/12/21 08/04/25 History apixaban 5 mg tablet (Eliquis) 5 mg PO BID 06/04/24 08/04/25 History ondansetron 4 mg disintegrating 4 mg PO Q8 PRN nausea and vomiting 10/20/24 08/04/25 Rx tablet #9 tabs losartan 50 mg tablet 50 mg PO QAM 11/26/24 08/04/25 History dronedarone 400 mg tablet (Multaq) 400 mg PO BID 05/01/25 08/04/25 History Patient History Medical History High triglycerides Hx of gastritis History of COVID-19 fall 2022 Atrial fibrillation 2019 IBS (irritable bowel syndrome) Surgical History History of cardioversion Status post Angela fundoplication History of cardiac radiofrequency ablation Jul 2023, January 2024 History of cholecystectomy History of appendectomy History of hernia repair History of esophagogastroduodenoscopy History of colonoscopy Family History Grandfather Prostate cancer Breast cancer Skin cancer Hypertension Silicosis Father Hypertension Social History Smoking Status: Former smoker Tobacco Type: Cigars Cigarettes Per Day: does not inhale and very rare use > advised by PAT nursing; Second Hand Exposure: No; Do You Dip or Chew Tobacco: Yes (advised npo by PAT nursing); Hx Alcohol Use: Yes Alcohol type: beer Hx Substance Use: Yes Preferred Language: Kyrgyz Communication Ability: Effective Pigment Processor Required: No Beliefs That Will Affect Care: None Current Living Situation: Spouse Feels Safe at Home: Yes Assistive Devices: None Review of Systems Review of Systems: All systems reviewed & are unremarkable except as noted in HPI & below Physical Exam Physical Exam: no evidence of CHF Cardiovascular: irregular and tachy Results & Data Vital Signs (Past 12 Hours) Vital Signs Temp Pulse Pulse Resp BP Pulse Ox O2 Del Method 08/07/25 11:02 36.8 C 116 H 18 119/81 92 Room Air 08/07/25 09:02 118 H 08/07/25 08:10 118 H 08/07/25 08:00 114 H 08/07/25 08:00 Room Air 08/07/25 07:04 36.5 C 116 H 20 133/86 90 Room Air 08/07/25 05:12 113 H 08/07/25 04:56 115 H 146/98 H 08/07/25 02:42 36.8 C 115 H 18 131/83 92 Room Air 08/07/25 01:16 116 H 08/07/25 01:01 116 H 128/89 Laboratory Results Abnormal lab results 08/06/25 08/06/25 08/07/25 Range/Units 11:45 17:14 00:02 WBC (4.8-10.8) K/ul RBC (4.70-6.10) M/uL Hgb (14.0-18.0) g/dl Hct (42.0-52.0) % Lymph # (Auto) (1.20-3.40) K/uL [place] # (Auto) (0.11-0.59) K/uL POC Glucose 134 H 150 H 122 H (70-99) mg/dl Fasting Glucose (70-99) mg/dl 08/07/25 08/07/25 08/07/25 Range/Units 07:03 07:27 11:22 WBC 3.86 L (4.8-10.8) K/ul RBC 4.32 L (4.70-6.10) M/uL Hgb 13.8 L (14.0-18.0) g/dl Hct 39.8 L (42.0-52.0) % Lymph # (Auto) 0.84 L (1.20-3.40) K/uL [place] # (Auto) 0.64 H (0.11-0.59) K/uL POC Glucose 136 H 124 H (70-99) mg/dl Fasting Glucose 131 H (70-99) mg/dl Medications Administered Current Inpatient Medications Acetaminophen (Acetaminophen 325 Mg Tab) 650 mg PO Q4H PRN PRN Reason: Pain or Fever Stop: 09/04/25 18:54 Apixaban (Apixaban 5 Mg Tablet) 5 mg PO BID DAISY Stop: 09/05/25 10:14 Last Admin: 08/07/25 08:11 Dose: 5 mg Pantoprazole Sodium (Protonix) 40 mg in 10 mls @ 5 mls/min IV BID DAISY Stop: 09/03/25 10:59 Last Admin: 08/07/25 08:13 Dose: 5 mls/min Thiamine HCl 200 mg/ Sodium (Chloride) 52 mls @ 210 mls/hr IV QAM [facility] Stop: 09/04/25 08:59 Last Infusion: 08/07/25 09:03 Dose: Infused Folic Acid 1 mg/ Syringe 10 mls @ 5 mls/min IV QAM [facility] Stop: 09/04/25 08:59 Last Admin: 08/07/25 08:13 Dose: 5 mls/min Diltiazem HCl 125 mg/ Dextrose 125 mls @ 15 mls/hr IV .Q8H20M DAISY; Protocol Stop: 09/04/25 14:14 Last Admin: 08/07/25 07:10 Dose: 15 mg/hr, 15 mls/hr Amiodarone HCl/Dextrose (Nexterone / D5w) 360 mg in 200 mls @ 16.667 mls/hr IV .Q12H [facility] Stop: 09/05/25 23:14 Last Admin: 08/07/25 11:09 Dose: 0.5 mg/min, 16.7 mls/hr Metoprolol Tartrate (Metoprolol Tartrate 1 Mg/Ml Vial) 5 mg IV Q4 [facility] Stop: 09/03/25 11:59 Last Admin: 08/07/25 08:10 Dose: 5 mg Morphine Sulfate (Morphine Sulfate 4 Mg/Ml 1 Ml Carp\Vial) 2 mg IV Q2H PRN PRN Reason: Pain Stop: 08/18/25 20:57 Ondansetron HCl (Ondansetron Inj 2 Mg/Ml 2 Ml Vial) 4 mg IV Q4H PRN PRN Reason: Nausea Stop: 09/03/25 10:44 Last Admin: 08/04/25 11:20 Dose: 4 mg Phenol (Chloraseptic (Phenol) 1.4% Soln 180 Ml Btl) 2 sprays MT Q1H PRN PRN Reason: Sore Throat Stop: 09/04/25 09:36 Last Admin: 08/05/25 10:49 Dose: 2 sprays ECG Additional Comments: Telemetry-Aflutter 112
[2025-08-07] MEDS: DRONEDARONE HCL 400 MG TAB PO SCH (12:33)
--- NOTE | 2025-08-07 16:38 | Hospitalist Progress Note ---
Date of Service August 07, 2025 Assessment & Plan (1) Rhinovirus infection: (2) Abdominal pain: (3) Small bowel obstruction: (4) History of Angela fundoplication: (5) High triglycerides: (6) Atrial fibrillation: (7) History of cardioversion: Plan # Small bowel obstruction - Ct: distention with dilated loops of ileum as discussed above with possible narrowing and possibly reflecting early small bowel obstruction/partial small bowel obstruction versus ileus. - General surgery's been consulted. - H/o extensive abdominal history with a fundoplication in the past with ruptured appendix with lysis of adhesions. He had a small bowel obstruction in the past requiring NG tube decompression for approximately 10 days per the patient. -Will keep the patient NPO. GI prophylaxis with IV Protonix. IV fluids. As needed antiemetics and analgesics have been ordered. - lactate- 3.4->1.9. - NG tube suction paused for 2 hrs to see the abd distension and took the NG tube out afternoon. Patient has no concerns till now. -On clear liquid diet now. # Acute rhinovirus. Supportive care only. Patient is relatively asymptomatic with exception with scratchy throat and some nasal congestion. # Atrial fibrillation/atrial flutter. -H/O cardioversion x 2 in the past. On chronic Eliquis therapy. His last dose was a day before the admission. Continue Eliquis. -Continue Metoprolol, Diltiazem for rate control and Amiodarone for rhythm control. Amiodarone discontinued and dronedarone continued. -Cardioversion tomorrow with NPO overnight. #Transaminitis: -probably secondary to alcohol use. Appears chronic and stable. #Alcohol use: Daily alcohol consumption drinking approximately 40 beers per week. His last drink was a day before the admission, he had a beer. He has never gone through alcohol withdrawal in the past. We have ordered a protocol with thiamine and folic acid replacement. If his withdrawal scale escalate significantly as needed benzodiazepines will be added as needed. # Hypertension: Continue Metoprolol # Dyslipidemia. Statin on hold at this point given n.p.o. status. Admission and Anticipated Discharge Date Admission Date: August 04, 2025 Supervising Physician Co-Signing Physician Notes I personally examined the patient and verified all ramsey points of history and exam, discussed case, and agree with decision making with Dr Kharel Continues to feel pretty good overall. Eating real food with minimal belly pain and bloating. Less palpitations. Vitals noted, in general he is awake and alert pleasant no distress. HEENT normocephalic atraumatic mucous membranes moist. unfortunately cardio is still a flutter around 115-120. Breathing unlabored no accessory muscle use good effort. Skin without rashes pallor or icterus. Neuro without focal deficits. Small bowel obstructionalmost certainly adhesional. Improved. Continue regular diet. Safe for discharge from this perspective Atrial flutterchronic A-fib/flutterexacerbated due to pain from SBO, but now tachycardia likely due to the rhythm itself. has not improvednow on IV Lopressor, diltiazem, and amiodarone. Cardiology will cardiovert tomorrow given that his A-flutter has been refractory to aggressive med management Alcohol abusefortunately no withdrawal at this time. Continue to follow. Continue thiamine and folate. Considered whether or not his tachycardia was related to alcohol withdrawal, but he has no diaphoresis/tremulousness or anxietyso I really suspect it is purely the rhythm, not alcohol withdrawal driving the rhythm. DVT prophylaxischronically anticoagulated. Subjective Patient reports soresness of his belly but no distension, pain after NG tube removal. He is passing loose stools. Reports the palpitations has been better. NPo overnight today. Review of Systems Review of Systems: As per HPI. Physical Exam Constitutional: WD/WN, vitals as above Respiratory: normal respiratory effort, lungs clear to auscultation Cardiovascular: Rate/Rhythm: + tachycardic Skin: no rashes, warm and dry Results & Data Results & Data Vital Signs (Past 12 Hours) Vital Signs Temp Pulse Pulse Resp BP Pulse Ox O2 Del Method 08/07/25 16:25 36.8 C 116 H 23 143/91 H 93 Room Air 08/07/25 15:03 118 H 08/07/25 11:02 36.8 C 116 H 18 119/81 92 Room Air 08/07/25 09:02 118 H 08/07/25 08:10 118 H 08/07/25 08:00 114 H 08/07/25 08:00 Room Air 08/07/25 07:04 36.5 C 116 H 20 133/86 90 Room Air 08/07/25 05:12 113 H 08/07/25 04:56 115 H 146/98 H (2) Abdominal pain Abdominal location: generalized Qualified Code(s): R10.84 - Generalized abdominal pain
--- NOTE | 2025-08-07 17:37 | Billing Data ---
Date of Service August 07, 2025 Coding Level of Care Code 45157 SUB INP/OBS CARE
[2025-08-07] MEDS: FAMOTIDINE 20 MG TAB PO PRN (19:32)
[2025-08-07] MEDS: METOPROLOL SUCC 50MG EXT REL TAB PO SCH (21:24)
[2025-08-08] MEDS ORDERED: PROPOFOL IV EMULSION 10 MG/ML 20 ML VIAL IV ONE (06:57)
[2025-08-08] MEDS ORDERED: LIDOCAINE 2% 2 ML VIAL/AMP(20MG/ML) INFIL ONE (06:57)
--- NOTE | 2025-08-08 07:30 | Anesthesiology Consultation ---
Date of Service August 08, 2025 Assessment & Plan Chart Review Chart Review: Acceptable Risk for Surgery Consults Requested none History Surgery Operation Date: 08/08/25 07:45 Proposed Procedures p Transesophageal Echo w/Anesthesia - Ilsa Kwong DO Height/Weight Height: 5 ft 11 in Weight: 78.8 kg Allergies Allergy/AdvReac Type Severity Reaction Status Date / Time sacubitril [From Entresto] AdvReac Headache Verified 05/08/25 07:09 valsartan [From Entresto] AdvReac Headache Verified 05/08/25 07:09 Medications Home Medications Medication Instructions Recorded Confirmed Last Taken aspirin 81 mg tablet,delayed 81 mg PO QPM 12/22/19 08/04/25 05/07/25 18:15 release (Dat Low Dose Aspirin) atorvastatin 20 mg tablet (Lipitor) 20 mg PO QPM 12/22/19 08/04/25 05/07/25 18:15 metoprolol succinate 100 mg 75 mg PO HS 07/06/21 08/04/25 05/07/25 18:15 tablet,extended release 24 hr (Toprol XL) acetaminophen 500 mg tablet 500 mg PO Q6H PRN Fever 12/12/21 08/04/25 12/06/21 (Tylenol Extra Strength) milk thistle 175 mg tablet 175 mg PO QPM 12/12/21 08/04/25 05/07/25 18:15 multivitamin 1 tab PO QAM 12/12/21 08/04/25 05/07/25 18:15 apixaban 5 mg tablet (Eliquis) 5 mg PO BID 06/04/24 08/04/25 05/08/25 05:30 ondansetron 4 mg disintegrating 4 mg PO Q8 PRN nausea and vomiting 10/20/24 08/04/25 Unknown tablet #9 tabs losartan 50 mg tablet 50 mg PO QAM 11/26/24 08/04/25 05/08/25 05:30 dronedarone 400 mg tablet (Multaq) 400 mg PO BID 05/01/25 08/04/25 05/08/25 05:30 Active Medications Generic Name Dose Route Start Last Admin Trade Name Freq PRN Reason Stop Dose Admin Apixaban 5 mg 08/06/25 10:15 08/07/25 21:23 Apixaban 5 Mg Tablet PO 09/05/25 10:14 5 mg BID DAISY Administration Dronedarone 400 mg 08/07/25 12:15 08/07/25 21:23 Dronedarone Hcl 400 Mg Tab PO 09/06/25 12:14 400 mg BID DAISY Administration Famotidine 40 mg 08/07/25 19:16 08/07/25 19:32 Famotidine 20 Mg Tab PO 09/06/25 19:15 40 mg Q12H PRN Administration Dyspepsia Pantoprazole Sodium 40 mg in 10 mls @ 5 mls/min 08/04/25 11:00 08/07/25 21:20 Protonix IV 09/03/25 10:59 5 mls/min BID DAISY Administration Thiamine HCl 200 mg/ Sodium 52 mls @ 210 mls/hr 08/05/25 09:00 08/07/25 09:03 Chloride IV 09/04/25 08:59 Infused QAM DAISY Infusion Folic Acid 1 mg/ Syringe 10 mls @ 5 mls/min 08/05/25 09:00 08/07/25 08:13 IV 09/04/25 08:59 5 mls/min QAM DAISY Administration Diltiazem HCl 125 mg/ Dextrose 125 mls @ 15 mls/hr 08/05/25 14:15 08/08/25 06:56 IV 09/04/25 14:14 15 mg/hr .Q8H20M DAISY 15 mls/hr Titration Protocol 15 MG/HR Metoprolol Succinate 75 mg 08/07/25 21:00 08/07/25 21:24 Metoprolol Succ 50mg Ext Rel Tab PO 09/06/25 20:59 75 mg PM DAISY Administration Ondansetron HCl 4 mg 08/04/25 10:45 08/07/25 18:08 Ondansetron Inj 2 Mg/Ml 2 Ml Vial IV 09/03/25 10:44 4 mg Q4H PRN Administration Nausea Phenol 2 sprays 08/05/25 09:37 08/05/25 10:49 Chloraseptic (Phenol) 1.4% Soln 180 Ml Btl MT 09/04/25 09:36 2 sprays Q1H PRN Administration Sore Throat Past Medical History Medical History High triglycerides Hx of gastritis History of COVID-19 fall 2022 Atrial fibrillation dx 2019 IBS (irritable bowel syndrome) Past Family History Family History Grandfather Prostate cancer Breast cancer Skin cancer Hypertension Silicosis Father Hypertension Past Surgical History Surgical History History of cardioversion Status post Angela fundoplication History of cardiac radiofrequency ablation Jul 2023, January 2024 History of cholecystectomy History of appendectomy History of hernia repair History of esophagogastroduodenoscopy History of colonoscopy Social History Smoking Status: Former smoker Smoking cigarettes per day: does not inhale and very rare use > advised by PAT nursing Do You Dip or Chew Tobacco: Yes (advised npo by PAT nursing) Hx Alcohol Use: Yes Alcohol type: beer alcohol intake frequency: other Alcohol Intake Frequency Comment: 30 a week Hx Substance Use: No substance use type: does not use Physical Exam Vital Signs Last Vital Signs Temp 36.8 C 08/08/25 03:08 Pulse 113 H 08/08/25 03:08 Resp 19 08/08/25 03:08 BP 134/90 08/08/25 03:08 Pulse Ox 92 08/08/25 03:08 O2 Del Method Room Air 08/08/25 03:08 Testing Laboratory Results 08/07/25 07:27 08/07/25 07:27 PT 11.3 Seconds (9.0-12.0) 08/05/25 04:19 INR 1.1 (0.9-1.1) 08/05/25 04:19 Urine Color Yellow 08/04/25 06:20 Urine Appearance Clear (Clear) 08/04/25 06:20 Urine pH 5.5 (4.5-7.5) 08/04/25 06:20 Ur Specific [place] >= 1.030 (1.000-1.030) 08/04/25 06:20 Urine Protein Negative (Negative) 08/04/25 06:20 Urine Glucose (UA) Negative (Negative) 08/04/25 06:20 Urine Ketones Negative (Negative) 08/04/25 06:20 Urine Nitrite Negative (Negative) 08/04/25 06:20 Ur Leukocyte Esterase Negative (Negative) 08/04/25 06:20
--- NOTE | 2025-08-08 08:47 | Anesthesiology Progress Note ---
Date of Service August 08, 2025 Anesthesia Post Procedure Vital Signs Vital Signs: Temp Pulse Pulse Resp BP Pulse Ox O2 Del Method 08/08/25 08:44 36.6 C 79 19 119/79 93 Room Air 08/08/25 08:15 78 18 116/78 95 Room Air 08/08/25 08:00 77 18 103/80 93 Room Air 08/08/25 07:33 114 H 14 110/89 91 Room Air 08/08/25 07:00 113 H 08/08/25 03:08 36.8 C 113 H 19 134/90 92 Room Air 08/07/25 23:00 36.8 C 113 H 18 134/93 92 Room Air 08/07/25 19:29 37.0 C 98 H 18 147/99 H 95 Room Air 08/07/25 16:25 36.8 C 116 H 23 143/91 H 93 Room Air 08/07/25 15:03 118 H 08/07/25 11:02 36.8 C 116 H 18 119/81 92 Room Air 08/07/25 09:02 118 H Transfer of Care Handoff Completed per policy Notes Mental Status: alert / awake / arousable and participated in evaluation Patient Amnestic to Procedure: Yes Nausea / Vomiting: adequately controlled Pain: adequately controlled Airway Patency, RR, SpO2: stable & adequate BP & HR: stable & adequate Hydration State: stable & adequate Anesthetic Complications: no major complications apparent
--- NOTE | 2025-08-08 08:50 | Cardioversion ---
Date of Service August 08, 2025 Electrical Cardioversion Rpt Electrical Cardioversion Report After consent obtained and under sedation provided by anesthesia, ANABELLA was performed confirming no DANISH thrombus. + smoke noted in left atrium. Synchronous DC cardioversion performed successfully at 200 joules x 1. NSR was acieved. Patients vital signs remained stable throughout. Patient waking up and can eat shortly. Cont all prior OP meds including metoprolol succinate and Eliquis. DC per primary service.
[2025-08-08] MEDS: BENZOCAINE/TETRACAIN/BUTAM 50 APPLN/5 GM CAN EXT ONE (10:35)
--- NOTE | 2025-08-08 12:46 | Electrocardiogram Report ---
Test Reason : Blood Pressure : */* mmHG Vent. Rate : 79 BPM Atrial Rate : 79 BPM P-R Int : 184 ms QRS Dur : 92 ms QT Int : 436 ms P-R-T Axes : 60 -5 35 degrees QTcB Int : 499 ms Normal sinus rhythm Nonspecific ST abnormality Abnormal ECG When compared with ECG of 04-Aug-2025 06:16, Sinus rhythm has replaced Atrial flutter Confirmed by Luis Jean ([id number]) on 08/08/2025 12:46:25 PM Referred By: REFERRED SELF Confirmed By: Luis Jean
--- NOTE | 2025-08-08 14:25 | Discharge Summary ---
Date of Service August 08, 2025 Admission HPI Per Admitting Provider This is a pleasant 54-year-old male who has a history of small bowel obstruction in the past. He says in the past had a ruptured appendix with lysis of adhesions and and then he saw fundoplication. Over the last 24 to 48 hours he has had intermittent abdominal discomfort as well as sinus congestion. In the middle of the night his symptoms got worse and presented to the ER this morning for further evaluation and treatment. In the ER the patient had laboratory studies including a CBC and a CMP which showed some mild transaminitis which appears to be somewhat chronic with AST and ALT of 61 and 88 respectively with an alk phos of 112. Otherwise his labs are unremarkable including his urinalysis however they did do a respiratory viral panel which was positive for rhinovirus. We are going to check a lactic acid level for completeness. That is pending at the time of this report. CT of the abdomen pelvis shows moderately dilated multiple fluid-filled loops of small bowel of the distal ileum specifically stented to 46 mm down to the level of the distal ileum. There was some mesenteric congestion noted as well. Consultation with the ER provider took place with general surgery Dr. Irving. The patient is going to be admitted to our service. He will be kept NPO. IV fluids. Will isolate for his respiratory illness with supportive care for that. Put him on IV Protonix twice daily for GI prophylaxis. Admission Exam Per Admitting Provider HEENT: Normocephalic atraumatic pupils are equal round and reactive to light bi laterally. No scleral icterus no conjunctival injection external auditory canals are patent septum is in the midline nose is without discharge oral mucosa is pink and dry without lesion. NECK: Supple no rigidity no lymphadenopathy no thyromegaly no carotid bruits no JVD no masses. HEART: Regular rate and rhythm-appears to be in sinus rhythm at this point. I do not appreciate any ectopy or rub. No murmur. LUNGS: Clear to auscultation bilaterally and anteriorly with no evidence of adventitious sounds/wheezes rales or rhonchi. ABDOMEN: Distended, mildly tender diffusely. No rebound. No peritoneal sign. I do not appreciate bowel sounds at this point. EXTREMITIES: Intact, no peripheral cyanosis, clubbing or edema. Strength is 5 out of 5 in extremities x4, no pathological reflexes. NEUROLOGICAL: Cranial nerves II through XII are grossly intact with no focal deficit elicited upon examination. No tremor. Principal Diagnosis Small Bowel Obstruction Discharge Exam Constitutional WD/WN, vitals as above Respiratory normal respiratory effort, lungs clear to auscultation Cardiovascular Rate/Rhythm: + tachycardic Skin no rashes, warm and dry Discharge Data Allergies Allergy/AdvReac Type Severity Reaction Status Date / Time sacubitril [From Entresto] AdvReac Headache Verified 05/08/25 07:09 valsartan [From Entresto] AdvReac Headache Verified 05/08/25 07:09 Consultations 08/04/25 09:53 ED Decision to Admit Stat 08/04/25 10:52 Consult General Surgery Routine 08/07/25 10:09 Consult Cardiology Routine 08/07/25 12:15 Consult Anesthesiology Routine 08/08/25 06:00 Consult Anesthesiology Routine Procedures Performed Operation Date: 08/08/25 07:45 Actual Procedures p Echo Transesophageal - Ilsa Kwong DO s Cardioversion - Ilsa Kwong DO s Echo Color Flow - Ilsa Kwong DO Ordered Studies 08/04/25 06:43 CT abd pelvis IV con only Stat Hospital Course (1) Paroxysmal atrial flutter: (2) History of Angela fundoplication: (3) High triglycerides: Plan #Small bowel obstruction - Ct: distention with dilated loops of ileum as discussed above with possible narrowing and possibly reflecting early small bowel obstruction/partial small bowel obstruction versus ileus. - General surgery's been consulted. - H/o extensive abdominal history with a fundoplication in the past with ruptured appendix with lysis of adhesions. He had a small bowel obstruction in the past requiring NG tube decompression for approximately 10 days per the patient. -Will keep the patient NPO. GI prophylaxis with IV Protonix. IV fluids. As needed antiemetics and analgesics have been ordered. - lactate- 3.4->1.9. - NG tube out and patient tolerating the clear liquid diet. - Continue escalating diet as tolerated. # Acute rhinovirus. Supportive care only. Patient is relatively asymptomatic with exception with scratchy throat and some nasal congestion. # Atrial fibrillation/atrial flutter. -H/O cardioversion x 2 in the past. On chronic Eliquis therapy. His last dose was a day before the admission. Continue Eliquis. -Continue Metoprolol, Diltiazem for rate control and Amiodarone for rhythm control. Amiodarone discontinued and dronedarone continued. -Synchronous DC Cardioversion on 08/08. #Transaminitis: -probably secondary to alcohol use. Appears chronic and stable. #Alcohol use: Daily alcohol consumption drinking approximately 40 beers per week. His last drink was a day before the admission, he had a beer. He has never gone through alcohol withdrawal in the past. We have ordered a protocol with thiamine and folic acid replacement. If his withdrawal scale escalate significantly as needed benzodiazepines will be added as needed. # Hypertension: Continue Metoprolol # Dyslipidemia. Statin on hold at this point given n.p.o. status. Total Time Total Time Spent Total Time Spent (In Minutes): <30 Discharge Plan Discharge Items Patient Disposition: Home - Self-Care Reason For Visit: ABD PAIN Discharge Diagnosis: Small Bowel Obstruction with Atrial Flutter Condition on Discharge: Fair Activity: Per Instructions section Non-emergency contact: Primary Care Provider Call non-emergency contact if: your symptoms worsen and your temperature is above 101 Follow-up/Referrals: PCP,NO [Primary Care Provider] - Diet: Regular Addtl Attending Provider Instructions: You were admitted to [facility] because of intermittent abdominal discomfort with sinus congestion. With regard to your symptoms, belly distension and pain, we gave you with fluids, kept you on nil per oral diet. We did a CT scan of your belly which showed the obstruction of your belly and so we placed a nasogastric tube inside your belly to drain the secretion and relive the pressure of your belly. We also noticed the atrial flutter on your heart which is a heart rhythm disorder, so we treated with the rate and rhythm control medications but there was not favourab le outcome and you were still tachycardic so we decided to do a procedure called "Cardioversion" which is the medical procedure to restore the regular rhythm of your heart by giving a electric shock to your heart which you had 2 times before too. You were deemed safe to discharge when you tolerated the liquid diet and your belly distension improved and you started to have the bowel movement. Please make sure you are not consuming alcohol for a while and take it slow on advancing on your diet too. You will continue your home medications as noted below. Please make sure you follow up with your PCP to make sure your condition continues to be stable. Thank you for choosing [facility] as your healthcare provider Pending Studies at Discharge: No Stand-Alone Forms: My [facility], Smoking Cessation Medications and DC Order Prescriptions: New ondansetron 4 mg tablet,disintegrating 4 mg PO DAILY PRN (Reason: nausea and vomiting) Qty: 30 0RF Continued losartan 50 mg tablet 50 mg PO QAM atorvastatin [Lipitor] 20 mg tablet 20 mg PO QPM aspirin [Dat Low Dose Aspirin] 81 mg tablet,delayed release (DR/EC) 81 mg PO QPM metoprolol succinate [Toprol XL] 100 mg tablet extended release 24 hr 75 mg PO HS multivitamin Tablet 1 tab PO QAM milk thistle 175 mg Tablet 175 mg PO QPM acetaminophen [Tylenol Extra Strength] 500 mg Tablet 500 mg PO Q6H PRN (Reason: Fever) ondansetron 4 mg tablet,disintegrating 4 mg PO Q8 PRN (Reason: nausea and vomiting) Qty: 9 0RF Multaq 400 mg Tablet 400 mg PO BID Rx Instructions: must administer with a meal/food Eliquis 5 mg Tablet 5 mg PO BID Discharge Orders: Discharge Order (Routine); Ordered 08/08/25 Ordered By: Teena Lindquist Admission Data Admit Date/Time: 08/04/25 10:55 Attending Provider: Davon Meeks Admit Provider: Teo Gaines Primary Care Provider: PCP,NO Other Providers: Teo Gaines; Lucas Irving; Ilsa Kwong Other Interventions: Discharge Summary Assessment (RN) Last Done: 08/08/25 14:39 Supervising Physician Co-Signing Physician Notes I personally examined the patient and verified all ramsey points of history and exam, discussed case, and agree with decision making with Dr Lindquist Feels good. Cardioversion went well.. Vitals noted, in general he is awake and alert pleasant no distress. HEENT normocephalic atraumatic mucous membranes moist. Breathing unlabored no accessory muscle use good effort. Skin without rashes pallor or icterus. Neuro without focal deficits. Small bowel obstructionalmost certainly adhesional. Improved. Continue regular diet. Safe for discharge from this perspective Atrial flutterchronic A-fib/flutterexacerbated due to pain from SBO, but now tachycardia likely due to the rhythm itself. Did not improve with IV Lopressor, diltiazem, and amiodarone. now stable status post cardioversion. Home on home meds Alcohol abusefortunately no withdrawal at this time. Continue to follow. Continue thiamine and folate. Considered whether or not his tachycardia was related to alcohol withdrawal, but he has no diaphoresis/tremulousness or anxietyso I really suspect it is purely the rhythm, not alcohol withdrawal driving the rhythm. discussed alcohol reductionhe had decided he was going to do this. DVT prophylaxischronically anticoagulated. Resident Activity Tracking Resident Involvement: Resident Care Provided Care Provided: Adult Hospital Medicine
--- NOTE | 2025-08-08 15:52 | Billing Data ---
Date of Service August 08, 2025 Coding Level of Care Code 45360 IN/OBS DISCH 30 MIN/LESS
== END 2025-08-08 16:12 | disposition home or self-care (01) | DRG 392 ==
LOC: ED 06:05 → 2S 10:55 → SUATTDRO 10:55 → 2S 12:41